=== PATIENT | female | born 1930 | race Caucasian/White ===

== ENCOUNTER 2016-12-27 13:40 | Observation (INO) ==
[2016-12-27 14:21] LABS: Basophils % 0.2 %; Eosinophils # 0.1 K/mcL (0.0-0.6); Eosinophils % 0.6 %; Hematocrit 44.1 % (35.3-44.9); Hemoglobin 14.6 g/dL (11.5-15.4); Immature Granulocytes % 0.6 % (0-4); Lymphocytes # 0.8 K/mcL (0.6-4.6); Lymphocytes % 7.6 %; Mean Corpuscular HGB Conc 33.1 g/dL (31.6-35.5); Mean Corpuscular Hemoglobin 28.8 pg (28.0-33.3); Monocytes # 0.3 K/mcL (0.0-1.3); Monocytes % 3.1 %; Platelet Count 239 K/mcL (140-400); Red Blood Count 5.07 M/mcL (3.82-4.97); Red Cell Distribution Width 13.2 % (11.5-14.5); Segmented Neutrophils % 87.9 %
[2016-12-27] MEDS ORDERED: 0.9 % Sodium Chloride 500 ML IV ONE (14:24)
[2016-12-27] MEDS ORDERED: Piperacillin/Tazobactam 3.375 GM in D5% in Water (Mini-Bag+) 100 ML IVPB ONE (14:25)
[2016-12-27] MEDS ORDERED: Vancomycin 1,000 MG in D5% in Water 250 ML IVPB ONE (14:25)
[2016-12-27 14:36] LABS: Alanine Aminotransferase 22 Units/L (0-55); Albumin 3.7 g/dL (3.5-5.0); Albumin/Globulin Ratio 1.1 (1.1-2.2); Alkaline Phosphatase 135 Units/L (38-126); Aspartate Amino Transferase 22 Units/L (5-34); BUN/Creatinine Ratio 21 (6-26); Bilirubin,Total 0.5 mg/dL (0.2-1.2); Blood Urea Nitrogen 16 mg/dL (7-20); Calcium 9.1 mg/dL (8.6-10.8); Carbon Dioxide 24 mEq/L (19-29); Chloride 102 mEq/L (98-109); Globulin 3.3 g/dL (2.4-3.5); Glucose 208 mg/dL (70-99); Osmolality,Calculated 289 (280-300); Potassium 3.8 mEq/L (3.5-4.5); Sodium 136 mEq/L (136-145); eGFR For African Americans > 60 (> 60); eGFR For Non-African Americans > 60 (> 60)
[2016-12-27 14:38] LABS: Bilirubin,Urine Negative (Negative); Blood,Urine Small (Negative); Clarity,Urine Turbid (Clear); Color,Urine Yellow (Yellow); Glucose,Urine (UA) 250 mg/dL (Normal); Ketones,Urine 15 mg/dL (Negative); Leukocyte Esterase,Urine Large (Negative); Nitrite,Urine Positive (Negative); PH,Urine 6.5 pH Units (5.0-8.0); Protein,Urine Trace mg/dL (Neg-Trace); Specific Gravity,Urine 1.013 (1.010-1.025); Urobilinogen,Urine Normal (Normal)
[2016-12-27 14:40] LABS: Bacteria,Urine Many per hpf (None-Few); Hyaline Casts,Urine None Seen per lpf (None-Few); Squamous Epithelial Cell,Urine Many per lpf (None-Few); WBC,Urine TNTC per hpf (0-3)
[2016-12-27 14:53] LABS: INR 1.1; Prothrombin Time 11.4 Seconds (9.4-12.1)
[2016-12-27 14:56] LABS: Activated Partial Thrombo Time 30.1 Seconds (26.0-36.0)
--- NOTE | 2016-12-27 15:08 | Emergency Department Note ---
Disposition Clinical Impression: Altered mental status Qualifiers: Altered mental status type: unspecified Qualified Code(s): R41.82 - Altered mental status, unspecified UTI (urinary tract infection) Qualifiers: Urinary tract infection type: site unspecified Hematuria presence: without hematuria Qualified Code(s): N39.0 - Urinary tract infection, site not specified Disposition: Admitted As Inpatient Condition: Good Referrals: NO,PCP [Primary Care Provider] - Forms: ED Satisfaction Letter Altered Mental Status HPI - General Chief Complaint: ED Altered Mental Status Stated Complaint: AMS Time Seen by Provider: 12/27/16 13:43 Source: EMS Limitations: altered mental status Nursing Notes Reviewed: Yes Vital Signs Reviewed: Yes - History of Present Illness HPI Narrative: [facility] was dispatched and found the patient was having PVCs with occasional runs of V. tach. Oxygen was placed and patient became more responsive and the PVCs reduced. Of note patient had a stroke 2 years ago and has not been doing well since then. MD complaint: altered mental status - Related Data Allergies Allergy/AdvReac Type Severity Reaction Status Date / Time morphine Allergy See Verified 12/27/16 13:42 Comments sulfasalazine AdvReac See Verified 12/27/16 13:42 Comments Limitations: ROS unobtainable due to patients medical condition Past Medical History - Past Medical History Source: unable to obtain Medical history: Reports: arthritis, CVA, dementia, hyperlipidemia, hypertension , myocardial infarction Psychiatric history: Reports: anxiety, depression - Social History Smoking Status: Unknown if ever smoked Alcohol use: Reports: unknown Drug use: Reports: unknown Physical Exam - General Limitations: altered mental status General appearance: lethargic, in distress - Head Head exam: atraumatic, normocephalic, normal inspection - Eye Eye exam: Present: normal appearance, PERRL, EOMI - ENT ENT exam: normal exam, normal oropharynx, mucous membranes moist - Neck Neck exam: Present: trachea midline. Absent: tenderness, lymphadenopathy - Chest Chest inspection: Present: normal inspection, symmetric chest wall rise - Respiratory Respiratory exam: Present: normal lung sounds bilaterally - Cardiovascular Cardiovascular exam: Present: regular rate, normal rhythm, normal heart sounds - Abdominal Exam Abdominal exam: Present: soft, Non-Tender. Absent: tenderness, distention, guarding, rebound, rigidity - Extremities Exam Extremities exam: Present: normal inspection, full ROM. Absent: tenderness, pedal edema - Back Exam Back exam: Absent: tenderness, CVA tenderness (R), CVA tenderness (L) - Neurological Exam Neurological exam: Present: other (Limited secondary to patient mental status) - Psychiatric Psychiatric exam: Present: other (Limited secondary to patient's mental status) - Skin Skin exam: Present: warm, dry, intact Course Vital Signs Temperature 99.4 F 12/27/16 13:43 Pulse Rate 84 12/27/16 13:43 Respiratory Rate 22 12/27/16 13:43 Blood Pressure 250/137 12/27/16 13:43 O2 Sat by Pulse Oximetry 95 12/27/16 13:43 Temperature 99.4 F 12/27/16 13:43 Pulse Rate 76 12/27/16 15:02 Respiratory Rate 28 12/27/16 15:02 Blood Pressure 109/84 12/27/16 15:02 O2 Sat by Pulse Oximetry 100 12/27/16 15:02 Oxygen Delivery Oxygen Delivery Bipap Altered Mental Status - Differential Diagnosis Likely: altered mental status, delirium, hypoglycemia, hyponatremia - Lab Data Lab results reviewed: Yes I reviewed the patient's lab results. Result diagrams: 12/27/16 14:14 12/27/16 14:14 Lab Results 12/27/16 12/27/16 12/27/16 Range/Units 14:14 14:14 14:14 WBC 10.2 (4.3-11.1) K/mcL RBC 5.07 H (3.82-4.97) M/mcL Hgb 14.6 (11.5-15.4) g/dL Hct 44.1 (35.3-44.9) % MCV 87.0 (83.0-100.0) fL MCH 28.8 (28.0-33.3) pg MCHC 33.1 (31.6-35.5) g/dL RDW 13.2 (11.5-14.5) % Plt Count 239 (140-400) K/mcL MPV 9.0 L (9.4-12.4) fL Immature Gran % 0.6 (0-4) % Seg Neutrophils % 87.9 % Lymphocytes % 7.6 % Monocytes % 3.1 % Eosinophils % 0.6 % Basophils % 0.2 % Neutrophils # 9.0 H (1.6-8.9) K/mcL Lymphocytes # 0.8 (0.6-4.6) K/mcL Monocytes # 0.3 (0.0-1.3) K/mcL Eosinophils # 0.1 (0.0-0.6) K/mcL Basophils # 0.0 (0.0-0.2) K/mcL PT 11.4 (9.4-12.1) Seconds INR 1.1 APTT 30.1 (26.0-36.0) Seconds Sodium 136 (136-145) mEq/L Potassium 3.8 (3.5-4.5) mEq/L Chloride 102 (98-109) mEq/L Carbon Dioxide 24 (19-29) mEq/L BUN 16 (7-20) mg/dL Creatinine 0.77 (0.57-1.11) mg/dL Est GFR ( Amer) > 60 (> 60) Est GFR (Non-Af Amer) > 60 (> 60) BUN/Creatinine Ratio 21 (6-26) Glucose 208 H (70-99) mg/dL Calculated Osmolality 289 (280-300) Lactic Acid (0.5-2.2) mmol/L Calcium 9.1 (8.6-10.8) mg/dL Total Bilirubin 0.5 (0.2-1.2) mg/dL AST 22 (5-34) Units/L ALT 22 (0-55) Units/L Alkaline Phosphatase 135 H (38-126) Units/L Troponin I (0-0.03) ng/mL Serum Total Protein 7.0 (6.0-8.3) g/dL Albumin 3.7 (3.5-5.0) g/dL Globulin 3.3 (2.4-3.5) g/dL Albumin/Globulin Ratio 1.1 (1.1-2.2) Urine Color (Yellow) Urine Clarity (Clear) Urine pH (5.0-8.0) pH Units Ur Specific [place] (1.010-1.025) Urine Protein (Neg-Trace) mg/dL Urine Glucose (UA) (Normal) mg/dL Urine Ketones (Negative) mg/dL Urine Blood (Negative) Urine Nitrite (Negative) Urine Bilirubin (Negative) Urine Urobilinogen (Normal) mg/dL Ur Leukocyte Esterase (Negative) Urine Microscopic RBC (0-3) per hpf Urine Microscopic WBC (0-3) per hpf Ur Squamous Epith Cells (None-Few) per lpf Urine Bacteria (None-Few) per hpf Hyaline Casts (None-Few) per lpf Ur Culture Indicated? (NO) 12/27/16 12/27/16 12/27/16 Range/Units 14:14 14:14 14:30 WBC (4.3-11.1) K/mcL RBC (3.82-4.97) M/mcL Hgb (11.5-15.4) g/dL Hct (35.3-44.9) % MCV (83.0-100.0) fL MCH (28.0-33.3) pg MCHC (31.6-35.5) g/dL RDW (11.5-14.5) % Plt Count (140-400) K/mcL MPV (9.4-12.4) fL Immature Gran % (0-4) % Seg Neutrophils % % Lymphocytes % % Monocytes % % Eosinophils % % Basophils % % Neutrophils # (1.6-8.9) K/mcL Lymphocytes # (0.6-4.6) K/mcL Monocytes # (0.0-1.3) K/mcL Eosinophils # (0.0-0.6) K/mcL Basophils # (0.0-0.2) K/mcL PT (9.4-12.1) Seconds INR APTT (26.0-36.0) Seconds Sodium (136-145) mEq/L Potassium (3.5-4.5) mEq/L Chloride (98-109) mEq/L Carbon Dioxide (19-29) mEq/L BUN (7-20) mg/dL Creatinine (0.57-1.11) mg/dL Est GFR ( Amer) (> 60) Est GFR (Non-Af Amer) (> 60) BUN/Creatinine Ratio (6-26) Glucose (70-99) mg/dL Calculated Osmolality (280-300) Lactic Acid 1.6 (0.5-2.2) mmol/L Calcium (8.6-10.8) mg/dL Total Bilirubin (0.2-1.2) mg/dL AST (5-34) Units/L ALT (0-55) Units/L Alkaline Phosphatase (38-126) Units/L Troponin I 0.01 (0-0.03) ng/mL Serum Total Protein (6.0-8.3) g/dL Albumin (3.5-5.0) g/dL Globulin (2.4-3.5) g/dL Albumin/Globulin Ratio (1.1-2.2) Urine Color Yellow (Yellow) Urine Clarity Turbid A (Clear) Urine pH 6.5 (5.0-8.0) pH Units Ur Specific [place] 1.013 (1.010-1.025) Urine Protein Trace (Neg-Trace) mg/dL Urine Glucose (UA) 250 H (Normal) mg/dL Urine Ketones 15 H (Negative) mg/dL Urine Blood Small H (Negative) Urine Nitrite Positive A (Negative) Urine Bilirubin Negative (Negative) Urine Urobilinogen Normal (Normal) mg/dL Ur Leukocyte Esterase Large H (Negative) Urine Microscopic RBC 3-5 H (0-3) per hpf Urine Microscopic WBC TNTC H (0-3) per hpf Ur Squamous Epith Cells Many H (None-Few) per lpf Urine Bacteria Many H (None-Few) per hpf Hyaline Casts None Seen (None-Few) per lpf Ur Culture Indicated? YES A (NO) - Radiology Data Radiology results reviewed: Yes I reviewed the patient's radiology results. Chest X-Ray 12/27/16 13:45 IMPRESSION: No acute cardiopulmonary process seen. D/ / Eamon Harris MD / Eamon Harris MD Interpreting Provider: Eamon Harris MD - EKG Data EKG attestation: Yes I reviewed and interpreted this EKG. EKG results narrative: Sinus rhythm with occasional PVCs TPA Checklist - LKW: 3-4.5 hrs Add. Contraindications Patient/family understanding: The patient/family members have been counseled and understood the risk, benefit , and alternatives of treatment. Critical Care Time Total Critical Care Time: 45 Attestation: Critical care performed: Time is exclusive of separately billable procedures. Time includes: direct patient care, patient reassessment, coordination of patient care, interpretation of data (laboratory data, radiology data, and respiratory data), review of patient's medical records, medical consultation and documentation of patient care. Procedures included in critical care time: Procedures excluded from critical care time:
[2016-12-27 15:31] LABS: ABG Base Excess -4.9 mEq/L (-2.0 to 3.0); ABG HCO3 20.6 mEQ/L (21-27); ABG Oxygen Saturation 99 % (95-98); ABG PCO2 39 mmHg (35-45); ABG PH 7.33 pH Units (7.32-7.45); ABG PO2 158 mmHg (85-104); ABG TCO2 21.8 mEq/L (20-26); Blood Gas FiO2 50 %
[2016-12-27 15:43] LABS: Magnesium 1.8 mg/dL (1.6-2.6)
[2016-12-27] MEDS ORDERED: Nitroglycerin 0.4 MG TAB.SUBL SL PRN (17:36)
[2016-12-27] MEDS ORDERED: Artificial Tears SOLN 15 ML BOTTLE BOTH EYES PRN (17:36)
[2016-12-27] MEDS ORDERED: HALOPERIDOL 2 MG PO PRN (17:36)
[2016-12-27] MEDS ORDERED: Naloxone 0.4 MG/ML INJ IVP PRN (17:39)
--- NOTE | 2016-12-27 17:51 | Internal Med History&Physical ---
Date of Encounter: 12/27/16 Time of Encounter: 17:48 Assessment and Plan (1) Acute cystitis without hematuria Current visit: Yes Status: Acute We will treat the patient with IV ceftriaxone. Follow up urine culture and sensitivities and adjust antibiotic therapy accordingly. (2) Acute metabolic encephalopathy Current visit: Yes Status: Acute Likely secondary to infection on top of her baseline dementia. We will institute fall precautions and aspiration precautions. Frequent reorientation. Soft wrist restraints if needed for risk of self-harm. She is at very high risk for morbidity and mortality and complications due to severe alteration of consciousness. (3) Advanced dementia Current visit: Yes Status: Acute Continue Namenda and Aricept. We will use haloperidol as needed for extreme agitation. (4) DVT prophylaxis Current visit: Yes Status: Acute Not needed the patient is DNR comfort care only. (5) End of life care Current visit: Yes Status: Acute Patient had an episode of bradycardia down to 20 bpm which was nonsustained, likely indicative of approaching end of life. She has advanced dementia, nonverbal and bedbound. The goal of care would be cured towards comfort and treating the infection however no aggressive or heroic measurement measures will be undertaken. This was discussed in detail with the patient's brother and his who expressed understanding and agreement with the plan. (6) Goals of care, counseling/discussion Current visit: Yes Status: Acute I have discussed the goals of care and the patient's family agrees to DNR comfort care. They would like to continue treatment with antibiotics. I will consult palliative care. Internal Medicine - H&P: HPI Chief complaint: Altered mental status Admitted From: Emergency Dept Plans for Post Hospital Care: Hospice - Home History of present illness: Ms. 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 The patient is currently nonverbal and cannot provide any history. The history is obtained from the patient's brother at the bedside. He says that at baseline she sometimes is minimally conversant waxes and wanes however for the last 2 days she has been less oriented. She has not been complaining of pain. He says that for the last 2 years she seemed to be more depressed and unhappy. EMS was called to the intermediate and she was found unresponsive. Her EKG showed multiple PVCs. She was brought to the hospital and workup was pertinent for positive UA. She was given broad-spectrum IV antibiotics and referred for admission. Review of systems unobtainable due to nonverbal state secondary to dementia. Family history reviewed and found to be noncontributory due to patient's advanced age. Past Med Surg Social Fam HX - Past Medical History Medical history: arthritis, CVA, dementia, hyperlipidemia, hypertension, myocardial infarction Psychiatric history: anxiety, depression - Social History Smoking Status: Unknown if ever smoked Alcohol use: unknown Drug use: unknown Internal Medicine - H&P: Meds Aspirin [Lo-Dose Aspirin EC] 81 mg PO DAILY 12/27/16 [History] Atorvastatin Calcium [Lipitor] 20 mg PO DAILY 12/27/16 [History] Buspirone HCl [Buspar] 10 mg PO BID 12/27/16 [History] Carvedilol [Coreg] 6.25 mg PO BID 12/27/16 [History] Dextromethorphan HBr/Quinidine [Nuedexta 20-10 mg Capsule] 1 cap PO BID [History] Donepezil HCl [Aricept] 10 mg PO DAILY 12/27/16 [History] Ergocalciferol (VITAMIN D2) [Vitamin D] 400 unit PO DAILY 12/27/16 [History] GuaiFENesin/Dextromethorphan [Robitussin Cough-Chest Dm Liq] 5 ml PO Q12H PRN [History] HYDROcodone/Acet 5/325 mg [Dixie 5-325 mg] 1 tab PO Q6H PRN 12/27/16 [History] Haloperidol 2 mg PO AD PRN 12/27/16 [History] Lisinopril [Zestril] 10 mg PO DAILY 12/27/16 [History] Loperamide [Imodium] 2 mg PO Q4HR PRN 12/27/16 [History] Magnesium Hydroxide [Milk of Magnesia] 60 ml PO DAILY PRN 12/27/16 [History] Memantine HCl [Namenda Xr] 28 mg PO DAILY 12/27/16 [History] Nitroglycerin [Nitrostat] 0.4 mg SL Q5M PRN 12/27/16 [History] Polyvinyl Alcohol [Artificial Tears] 1 drop BOTH EYES Q2H PRN 12/27/16 [History] Sertraline [Zoloft] 50 mg PO DAILY 12/27/16 [History] Vitamin E Acid Succinate [Vitamin E] 400 units PO DAILY 12/27/16 [History] Allergies morphine Allergy (Verified 12/27/16 15:40) See Comments UNKNOWN REACTION- LISTED ON ECF MAR SHEET sulfasalazine Allergy (Verified 12/27/16 15:40) See Comments UNKNOWN REACTION- LISTED ON ECF MAR SHEET All Systems PM: A 10-system review of systems was performed and is negative for pertinent findings except as documented above in the HPI. - Constitutional Vitals: Temp Pulse Resp BP Pulse Ox 97.0 F L 70 16 102/89 97 12/27/16 16:31 12/27/16 16:31 12/27/16 16:31 12/27/16 16:31 12/27/16 16:31 - Eye Eye exam: Present: PERRL, conjuntiva pink, sclera anicteric Pupils: Present: PERRL - Respiratory Respiratory exam: Present: CTAB. Absent: accessory muscle use, rales, rhonchi, wheezes - Cardiovascular Cardiovascular exam: Present: RRR, +S1, +S2. Absent: diastolic murmur, gallop, rubs, systolic murmur - GI/Abdominal GI/Abdominal exam: Present: normal bowel sounds, soft, no peritoneal signs. Absent: distended, tenderness - Neurological Exam Neurological exam: Present: speech deficit. Absent: pronater drift, facial droop Additional comments: Awake, tracks to with her eyes, nonverbal, does not follow commands. Answers yes and no questions inappropriately. - Skin Skin exam: Present: dry, intact Internal Med - H&P Results - Labs CBC & Chem 7: 12/27/16 14:14 12/27/16 14:14 - EKG Data EKG comments: 12/27/16 17:52 EKG reviewed by myself shows ventricular trigeminy with a rate of 67 bpm normal axis, right bundle branch block. - VTE Reasons for not Prescribing Prophylaxis: Medical contraindication
[2016-12-28] MEDS: Haloperidol Lactate 5 MG/ML VIAL IVP PRN ×2 (00:50→22:20)
[2016-12-28 06:19] LABS: Basophils % 0.2 %; Hemoglobin 14.6 g/dL (11.5-15.4); Immature Granulocytes % 0.3 % (0-4); Lymphocytes # 0.7 K/mcL (0.6-4.6); Lymphocytes % 5.7 %; Mean Corpuscular Volume 85.3 fL (83.0-100.0); Mean Platelet Volume 9.3 fL (9.4-12.4); Monocytes # 0.5 K/mcL (0.0-1.3); Monocytes % 4.5 %; Neutrophils # 10.7 K/mcL (1.6-8.9); Platelet Count 210 K/mcL (140-400); Red Blood Count 5.04 M/mcL (3.82-4.97); Red Cell Distribution Width 13.3 % (11.5-14.5); Segmented Neutrophils % 89.3 %
[2016-12-28 06:39] LABS: BUN/Creatinine Ratio 19 (6-26); Blood Urea Nitrogen 12 mg/dL (7-20); Calcium 9.1 mg/dL (8.6-10.8); Carbon Dioxide 19 mEq/L (19-29); Chloride 104 mEq/L (98-109); Glucose 94 mg/dL (70-99); Osmolality,Calculated 284 (280-300); Potassium 3.6 mEq/L (3.5-4.5); Sodium 137 mEq/L (136-145); eGFR For African Americans > 60 (> 60); eGFR For Non-African Americans > 60 (> 60)
--- NOTE | 2016-12-28 08:47 | Internal Med Progress Note ---
<Shaq Mendez - Last Filed: 12/28/16 08:55> Date of Encounter: 12/28/16 Time of Encounter: 08:45 - Assessment and plan (1) Acute cystitis without hematuria Current Visit: Yes Status: Acute Assessment and plan: culture results show gram negative rods, currently on zosyn day 2, await final culture and sensitivities and narrow abx treatment accordingly. Will treat for total of 5 days. (2) Acute metabolic encephalopathy Current Visit: Yes Status: Acute Assessment and plan: On chronic dementia. Likely related to underlying infection as discussed above. Patient did have some agitation overnight that required haldol. Will continue to monitor for mental status changes (3) Advanced dementia Current Visit: Yes Status: Acute Assessment and plan: Will discuss baseline mental status with family. Once patient returns to baseline we will transfer back to [facility]. Continue aricept and namenda. Haldol prn for agitation. (4) Goals of care, counseling/discussion Current Visit: Yes Status: Acute Assessment and plan: Patient is DNR-CC. Instructed nursing to d/c tele. Comfort measures only which include treating infection. Denies pain at this time - Subjective Interval history: Patient seen and examined at bedside. Patient is somewhat somenelent but would open her eyes and respond appropriately. Patient has no complaints at this time. She denies any pain - Constitutional Vitals: Temp Pulse Resp BP Pulse Ox 98.3 F 95 16 129/87 95 12/28/16 07:29 12/28/16 07:29 12/28/16 07:29 12/28/16 07:29 12/28/16 07:35 General appearance: Present: no acute distress - Respiratory Respiratory exam: Present: CTAB. Absent: rales, rhonchi, wheezes - Cardiovascular Cardiovascular exam: Present: RRR. Absent: gallop, rubs, systolic murmur - GI/Abdominal GI/Abdominal exam: Present: normal bowel sounds, soft. Absent: distended, tenderness Additional comments: [place] present Internal Medicine: Result - Labs CBC & Chem 7: 12/28/16 05:44 12/28/16 05:44 Labs: Short CBC 12/28/16 Range/Units 05:44 WBC 12.0 H (4.3-11.1) K/mcL Hgb 14.6 (11.5-15.4) g/dL Hct 43.0 (35.3-44.9) % Plt Count 210 (140-400) K/mcL Neutrophils # 10.7 H (1.6-8.9) K/mcL BMP 12/28/16 05:44 Sodium 137 Potassium 3.6 Chloride 104 Carbon Dioxide 19 BUN 12 Creatinine 0.64 Glucose 94 Calcium 9.1 - ABG Interpretation ABG results: ABG ABG pH 7.33 pH Units (7.32-7.45) 12/27/16 15:20 ABG pCO2 39 mmHg (35-45) 12/27/16 15:20 ABG pO2 158 mmHg (85-104) H 12/27/16 15:20 ABG O2 Saturation 99 % (95-98) H 12/27/16 15:20 PT/INR, D-dimer PT 11.4 Seconds (9.4-12.1) 12/27/16 14:14 - VTE Reasons for not Prescribing Prophylaxis: Medical contraindication Consult Discharge Plan - Plan Referrals: NO,PCP [Primary Care Provider] - <Rony King P - Last Filed: 12/28/16 17:46> Date of Encounter: 12/28/16 - Constitutional Vitals: Temp Pulse Resp BP Pulse Ox 98.1 F 79 15 126/88 100 12/28/16 15:57 12/28/16 15:57 12/28/16 15:57 12/28/16 15:57 12/28/16 15:57 Internal Medicine: Result - Labs CBC & Chem 7: 12/28/16 05:44 12/28/16 05:44 Labs: Short CBC 12/28/16 Range/Units 05:44 WBC 12.0 H (4.3-11.1) K/mcL Hgb 14.6 (11.5-15.4) g/dL Hct 43.0 (35.3-44.9) % Plt Count 210 (140-400) K/mcL Neutrophils # 10.7 H (1.6-8.9) K/mcL BMP 12/28/16 05:44 Sodium 137 Potassium 3.6 Chloride 104 Carbon Dioxide 19 BUN 12 Creatinine 0.64 Glucose 94 Calcium 9.1 - ABG Interpretation ABG results: ABG ABG pH 7.33 pH Units (7.32-7.45) 12/27/16 15:20 ABG pCO2 39 mmHg (35-45) 12/27/16 15:20 ABG pO2 158 mmHg (85-104) H 12/27/16 15:20 ABG O2 Saturation 99 % (95-98) H 12/27/16 15:20 PT/INR, D-dimer PT 11.4 Seconds (9.4-12.1) 12/27/16 14:14 - Attending Attestation I examined this patient and my medical decision-making was reviewed with the DOUGH MAKER/PA/Advanced Practice Nurse/Resident Physician. I agree with the documented findings, disposition and treatment plan as described except to the extent set forth below.
[2016-12-28] MEDS: *HR* HYDROcodone/Acet 5/325 mg TABLET PO PRN ×3 (08:49→22:21)
[2016-12-28] MEDS: Aspirin Enteric Coated 81 MG Tablet PO SCH (09:10)
[2016-12-28] MEDS: (Memantine Hcl [Namenda Xr] 28 MG) PO SCH (09:11)
--- NOTE | 2016-12-28 15:26 | Palliative - Consult Note ---
Date of Encounter: 12/28/16 Time of Encounter: 09:20 - Assessment and Plan (1) Acute cystitis without hematuria Current Visit: Yes Status: Acute Assessment and plan: On Zosyn for this, urine is showing gram-negative rods. Plan is for 5 days' worth of treatment per the hospitalist team. Patient will probably be discharged back to prison tomorrow. (2) Acute metabolic encephalopathy Current Visit: Yes Status: Acute Assessment and plan: Chronic dementia. The worsening encephalopathy is most likely secondary to the bladder infection. Patient overnight did require some Haldol. Continue to watch. (3) Advanced dementia Current Visit: Yes Status: Acute Assessment and plan: 2 new current medications Haldol when necessary for agitation plan is for the patient to return to [place]. (4) Goals of care, counseling/discussion Current Visit: Yes Status: Acute Assessment and plan: CODE STATUS DNR comfort care, patient and family wish to be treated for this infection. Care to return to prison after treatment for this infection. As the family wishes to have the patient treated for this infection will hold on any hospice discussion at this time until after the patient is over this infection and establish a baseline. Her dementia alone is insufficient to justify hospice at this time and her infection is being actively treated therefore we can pursue hospice in the future if it is desired to the prison. Palliative-CN HPI - Data of Consult Patient: new to practice Requesting Physician: Samantha Galeas Primary Care Provider: PCP NO - Consult Narrative Palliative Care/Comfort Measures: Palliative care Reason for consult: Goals of care History of present illness: Ms. Finney is a 86 year old female With a history of dementia who presents with a further change in her mental status which was found to be secondary to an acute cystitis. Family planning, was to return to prison. Patient's family wishes to have comfort measures only but did not want to have the infection treated. During her initial evaluation the patient did have periods of extreme bradycardia. He did not wish to have any of this treated aggressively other than the infection. Care was counseled regarding goals of care. At this time the patient does not have any complaints of. CC: Samantha Galeas Past Med Surg Social Fam HX - Past Medical History Medical history: arthritis, CVA, dementia, hyperlipidemia, hypertension, myocardial infarction Psychiatric history: anxiety, depression - Social History Smoking Status: Unknown if ever smoked Alcohol use: unknown Drug use: unknown Medications and Allergies Aspirin [Lo-Dose Aspirin EC] 81 mg PO DAILY 12/27/16 [History] Atorvastatin Calcium [Lipitor] 20 mg PO DAILY 12/27/16 [History] Buspirone HCl [Buspar] 10 mg PO BID 12/27/16 [History] Carvedilol [Coreg] 6.25 mg PO BID 12/27/16 [History] Dextromethorphan HBr/Quinidine [Nuedexta 20-10 mg Capsule] 1 cap PO BID [History] Donepezil HCl [Aricept] 10 mg PO DAILY 12/27/16 [History] Ergocalciferol (VITAMIN D2) [Vitamin D] 400 unit PO DAILY 12/27/16 [History] GuaiFENesin/Dextromethorphan [Robitussin Cough-Chest Dm Liq] 5 ml PO Q12H PRN [History] HYDROcodone/Acet 5/325 mg [[place] 5-325 mg] 1 tab PO Q6H PRN 12/27/16 [History] Haloperidol 2 mg PO AD PRN 12/27/16 [History] Lisinopril [Zestril] 10 mg PO DAILY 12/27/16 [History] Loperamide [Imodium] 2 mg PO Q4HR PRN 12/27/16 [History] Magnesium Hydroxide [Milk of Magnesia] 60 ml PO DAILY PRN 12/27/16 [History] Memantine HCl [Namenda Xr] 28 mg PO DAILY 12/27/16 [History] Nitroglycerin [Nitrostat] 0.4 mg SL Q5M PRN 12/27/16 [History] Polyvinyl Alcohol [Artificial Tears] 1 drop BOTH EYES Q2H PRN 12/27/16 [History] Sertraline [Zoloft] 50 mg PO DAILY 12/27/16 [History] Vitamin E Acid Succinate [Vitamin E] 400 units PO DAILY 12/27/16 [History] Allergies morphine Allergy (Verified 12/27/16 15:40) See Comments UNKNOWN REACTION- LISTED ON ECF MAR SHEET sulfasalazine Allergy (Verified 12/27/16 15:40) See Comments UNKNOWN REACTION- LISTED ON ECF MAR SHEET ROS unobtainable: due to mental status Palliative Care-Exam - Constitutional Vitals: Temp Pulse Resp BP Pulse Ox 98.3 F 95 16 129/87 95 12/28/16 07:29 12/28/16 07:29 12/28/16 07:29 12/28/16 07:29 12/28/16 07:35 General appearance: Present: no acute distress - Head Head Exam: Present: atraumatic, normal inspection - Eye Eye exam: Present: EOMI, normal appearance - ENT ENT exam: Present: mucous membranes moist, normal oropharynx - Neck Neck exam: Present: normal inspection - Respiratory Respiratory exam: Present: CTAB - Cardiovascular Cardiovascular exam: Present: irregular rhythm - GI/Abdominal Exam GI/Abdominal exam: Present: normal bowel sounds. Absent: soft, tenderness - Catheter Type: Urethral ([place]) - Extremities Exam Extremities exam: Present: normal inspection. Absent: pedal edema, tenderness - Neurological Exam Neurological exam: Present: altered. Absent: oriented X3 (Awakens easily) - Psychiatric Psychiatric exam: Absent: agitated, anxious - Skin Skin exam: Present: dry, warm Internal Medicine - CN: Reslt - Labs CBC & Chem 7: 12/28/16 05:44 12/28/16 05:44 Labs: Short CBC 12/28/16 Range/Units 05:44 WBC 12.0 H (4.3-11.1) K/mcL Hgb 14.6 (11.5-15.4) g/dL Hct 43.0 (35.3-44.9) % Plt Count 210 (140-400) K/mcL Neutrophils # 10.7 H (1.6-8.9) K/mcL BMP 12/28/16 05:44 Sodium 137 Potassium 3.6 Chloride 104 Carbon Dioxide 19 BUN 12 Creatinine 0.64 Glucose 94 Calcium 9.1 - ABG Interpretation ABG results: ABG ABG pH 7.33 pH Units (7.32-7.45) 12/27/16 15:20 ABG pCO2 39 mmHg (35-45) 12/27/16 15:20 ABG pO2 158 mmHg (85-104) H 12/27/16 15:20 ABG O2 Saturation 99 % (95-98) H 12/27/16 15:20 PT/INR, D-dimer PT 11.4 Seconds (9.4-12.1) 12/27/16 14:14 Consult Discharge Plan - Plan Referrals: NO,PCP [Primary Care Provider] - Palliative Quality Palliative Quality: Screen for Code Status: Yes, Screen for Goals of Care: Yes, Screen for Pain: Yes, If Pain Regimen Started, Initiate Bowel Regimen: Yes ( Bowel regimen was initiated, although not actively treating pain), Screen for Nausea/Vomitting: Yes Code Status: DNR comfort care.
--- NOTE | 2016-12-28 19:37 | Electrocardiograph Report ---
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
[2016-12-29 08:44] VITALS: BP 147/92
--- NOTE | 2016-12-29 08:58 | Discharge Summary ---
<Shaq Mendez - Last Filed: 12/29/16 15:39> Date of Encounter: 12/29/16 Time of Encounter: 08:55 - Discharge Diagnosis (1) Acute cystitis without hematuria Priority: Primary Status: Acute (2) Acute metabolic encephalopathy Priority: Primary Status: Acute (3) Advanced dementia Priority: Secondary Status: Chronic (4) Goals of care, counseling/discussion Priority: Secondary Status: Chronic - Discharge Medications Prescriptions: Amoxicillin 250 mg PO Q8H #9 capsule Home Medications: Aspirin [Lo-Dose Aspirin EC] 81 mg PO DAILY 12/27/16 [History] Atorvastatin Calcium [Lipitor] 20 mg PO DAILY 12/27/16 [History] Buspirone HCl [Buspar] 10 mg PO BID 12/27/16 [History] Carvedilol [Coreg] 6.25 mg PO BID 12/27/16 [History] Dextromethorphan HBr/Quinidine [Nuedexta 20-10 mg Capsule] 1 cap PO BID [History] Donepezil HCl [Aricept] 10 mg PO DAILY 12/27/16 [History] Ergocalciferol (VITAMIN D2) [Vitamin D] 400 unit PO DAILY 12/27/16 [History] GuaiFENesin/Dextromethorphan [Robitussin Cough-Chest Dm Liq] 5 ml PO Q12H PRN [History] HYDROcodone/Acet 5/325 mg [[place] 5-325 mg] 1 tab PO Q6H PRN 12/27/16 [History] Haloperidol 2 mg PO AD PRN 12/27/16 [History] Lisinopril [Zestril] 10 mg PO DAILY 12/27/16 [History] Loperamide [Imodium] 2 mg PO Q4HR PRN 12/27/16 [History] Magnesium Hydroxide [Milk of Magnesia] 60 ml PO DAILY PRN 12/27/16 [History] Memantine HCl [Namenda Xr] 28 mg PO DAILY 12/27/16 [History] Nitroglycerin [Nitrostat] 0.4 mg SL Q5M PRN 12/27/16 [History] Polyvinyl Alcohol [Artificial Tears] 1 drop BOTH EYES Q2H PRN 12/27/16 [History] Sertraline [Zoloft] 50 mg PO DAILY 12/27/16 [History] Vitamin E Acid Succinate [Vitamin E] 400 units PO DAILY 12/27/16 [History] Amoxicillin 250 mg PO Q8H #9 capsule 12/29/16 [Rx] Allergies/Adverse Reactions: Allergies morphine Allergy (Verified 12/27/16 15:40) See Comments UNKNOWN REACTION- LISTED ON ECF MAR SHEET sulfasalazine Allergy (Verified 12/27/16 15:40) See Comments UNKNOWN REACTION- LISTED ON ECF MAR SHEET Date of admission: 12/27/16 18:08 Primary care physician: PCP YARELI Discharging clinician: Shaq Mendez Anticipated date of discharge: 12/29/16 - Patient Status Disposition: Transfer SNF Condition: Good Functional capacity at discharge: bed bound Overall status at discharge: patient is progressing back to baseline - Discharge Instructions Instructions: Urinary Tract Infection in Women (DC) Follow Up With: NO,PCP [Primary Care Provider] - Additional Instructions: Please complete 3 more days of antibiotics. Please resume your home meds - Diet and Activity Activity: increase activity as tolerated Diet: advance to your usual diet Interval History: Patient seen and examined at bedside. Patient is awake and alert but not oriented. She denies pain at this time. Appears to be back at her baseline mental status. Hospital course: Ms. Finney is a 86 year old female with history of advanced dementia presented from the [facility] with acute change in her mental status. Patient was found to have infection. She was started on Zosyn. Patient did have some agitation during her stay however this is normal for her per family. Patient's mental status returned to her baseline. Urinary culture showed Escherichia coli sensitive to penicillin so patient was discharged on amoxicillin. Patient was discharged to [facility] in stable condition. - Time Spent with Patient Total time spent providing and/or coordinating discharge services: - Constitutional Vitals: Temp Pulse Resp BP Pulse Ox 98 F 102 18 147/92 96 12/29/16 08:30 12/29/16 08:30 12/29/16 08:30 12/29/16 08:30 12/29/16 08:30 General appearance: Present: A&O X 0, no acute distress - Respiratory Respiratory exam: Present: CTAB. Absent: rales, rhonchi - Cardiovascular Cardiovascular exam: Present: RRR, +S1, +S2. Absent: gallop, rubs, systolic murmur - GI/Abdominal GI/Abdominal exam: Present: normal bowel sounds, soft. Absent: distended, tenderness - Neurological Exam Neurological exam: Present: alert, altered, no focal deficits. Absent: oriented X3 - VTE Reasons for not Prescribing Prophylaxis: Medical contraindication <Daryn Davis - Last Filed: 12/29/16 15:51> Date of Encounter: 12/29/16 - Discharge Diagnosis (1) Acute cystitis without hematuria Status: Acute (2) Acute metabolic encephalopathy Status: Acute (3) Advanced dementia Status: Chronic Date of admission: 12/27/16 18:08 Primary care physician: PCP NO Hospital course: Ms. Finney is a 86 year old female - Time Spent with Patient Total time spent providing and/or coordinating discharge services: - Constitutional Vitals: Temp Pulse Resp BP Pulse Ox 98 F 102 18 147/92 96 12/29/16 08:30 12/29/16 08:30 12/29/16 08:30 12/29/16 08:30 12/29/16 08:30 - Attending Attestation I examined this patient and my medical decision-making was reviewed with the Resident Physician on 12/29/16. I agree with the documented findings, disposition and treatment plan as described except to the extent set forth below. Ms. Finney appears to be at baseline today. No acute issues noted. Exam Alert. Comfortable Heart reg Lungs with scant wheeze RUL area Abd soft Plan D/C to ECF today.
[2016-12-29] MEDS: Aspirin Enteric Coated 81 MG Tablet PO SCH (09:09)
[2016-12-29] MEDS: (Memantine Hcl [Namenda Xr] 28 MG) PO SCH (09:11)
--- NOTE | 2016-12-29 13:17 | Palliative Progress Note ---
Date of Encounter: 12/29/16 Time of Encounter: 09:40 - Assessment and plan (1) Acute cystitis without hematuria Status: Acute Assessment and plan: Patient to be discharged today on oral antibiotics (2) Acute metabolic encephalopathy Status: Acute Assessment and plan: This was in all likelihood secondary to the acute cystitis compounded by the patient's underlying dementia. (3) Advanced dementia Status: Chronic Assessment and plan: Continue current medications patient being discharged today. (4) Goals of care, counseling/discussion Status: Chronic Assessment and plan: Patient is DO NOT RESUSCITATE comfort care. No changes in this. Patient be returning to shelter today. The family wished to have treatment for the acute cystitis hospice discussion was held pending completion of the antibiotics and then can be rediscussed at a future date at the shelter. - Time Spent With Patient Total time spent is greater than 50% in coordination of care (as documented) at patient's floor/unit and/or counseling patient: - Subjective Interval history: No complaints of this morning, no events noted overnight. Per hospitalist team plan is for discharge today back to shelter - Constitutional Vitals: Abnormal lab results WBC 12.0 K/mcL (4.3-11.1) H 12/28/16 05:44 RBC 5.04 M/mcL (3.82-4.97) H 12/28/16 05:44 MPV 9.3 fL (9.4-12.4) L 12/28/16 05:44 Neutrophils # 10.7 K/mcL (1.6-8.9) H 12/28/16 05:44 ABG pO2 158 mmHg (85-104) H 12/27/16 15:20 ABG HCO3 20.6 mEQ/L (21-27) L 12/27/16 15:20 ABG O2 Saturation 99 % (95-98) H 12/27/16 15:20 ABG Base Excess -4.9 mEq/L (-2.0 to 3.0) L 12/27/16 15:20 Alkaline Phosphatase 135 Units/L (38-126) H 12/27/16 14:14 Urine Clarity Turbid (Clear) A 12/27/16 14:30 Urine Glucose (UA) 250 mg/dL (Normal) H 12/27/16 14:30 Urine Ketones 15 mg/dL (Negative) H 12/27/16 14:30 Urine Blood Small (Negative) H 12/27/16 14:30 Urine Nitrite Positive (Negative) A 12/27/16 14:30 Ur Leukocyte Esterase Large (Negative) H 12/27/16 14:30 Urine Microscopic RBC 3-5 per hpf (0-3) H 12/27/16 14:30 Urine Microscopic WBC TNTC per hpf (0-3) H 12/27/16 14:30 Ur Squamous Epith Cells Many per lpf (None-Few) H 12/27/16 14:30 Urine Bacteria Many per hpf (None-Few) H 12/27/16 14:30 Ur Culture Indicated? YES (NO) A 12/27/16 14:30 General appearance: Present: no acute distress - Head Head exam: Present: atraumatic, normal inspection - Eye Eye exam: Present: normal appearance - ENT ENT exam: Present: mucous membranes moist - Respiratory Respiratory exam: Present: CTAB - Cardiovascular Cardiovascular exam: Present: RRR - GI/Abdominal GI/Abdominal exam: Present: normal bowel sounds, soft. Absent: tenderness - Extremities Exam Extremities exam: Present: normal inspection. Absent: pedal edema, tenderness - Neurological Exam Neurological exam: Present: alert, altered. Absent: oriented X3 - Psychiatric Psychiatric exam: Absent: agitated, anxious - Skin Skin exam: Present: dry, warm Palliative Quality Palliative Quality: Screen for Code Status: Yes, Screen for Goals of Care: Yes, Screen for Pain: Yes, If Pain Regimen Started, Initiate Bowel Regimen: Yes ( Bowel regimen was initiated, although not actively treating pain), Screen for Nausea/Vomitting: Yes - Labs CBC & Chem 7: 12/28/16 05:44 12/28/16 05:44 - ABG Interpretation ABG results: ABG ABG pH 7.33 pH Units (7.32-7.45) 12/27/16 15:20 ABG pCO2 39 mmHg (35-45) 12/27/16 15:20 ABG pO2 158 mmHg (85-104) H 12/27/16 15:20 ABG O2 Saturation 99 % (95-98) H 12/27/16 15:20 PT/INR, D-dimer PT 11.4 Seconds (9.4-12.1) 12/27/16 14:14 Consult Discharge Plan - Plan Instructions: Urinary Tract Infection in Women (DC) Additional Instructions: Please complete 3 more days of antibiotics. Please resume your home meds Referrals: NO,PCP [Primary Care Provider] - Prescriptions: Amoxicillin 250 mg PO Q8H #9 capsule
--- NOTE | 2016-12-29 15:55 | Physician Discharge Referral ---
ExtendedCare Referral Info Provider in Charge after Transfer: PCP Institutional Level of Care: Intermediate - MR - Diagnosis (1) Acute cystitis without hematuria Status: Acute (2) Acute metabolic encephalopathy Status: Acute (3) Advanced dementia Status: Chronic - Transfer Medications Prescriptions: Amoxicillin 250 mg PO Q8H #9 capsule Home Medications: Aspirin [Lo-Dose Aspirin EC] 81 mg PO DAILY 12/27/16 [History] Atorvastatin Calcium [Lipitor] 20 mg PO DAILY 12/27/16 [History] Buspirone HCl [Buspar] 10 mg PO BID 12/27/16 [History] Carvedilol [Coreg] 6.25 mg PO BID 12/27/16 [History] Dextromethorphan HBr/Quinidine [Nuedexta 20-10 mg Capsule] 1 cap PO BID [History] Donepezil HCl [Aricept] 10 mg PO DAILY 12/27/16 [History] Ergocalciferol (VITAMIN D2) [Vitamin D] 400 unit PO DAILY 12/27/16 [History] GuaiFENesin/Dextromethorphan [Robitussin Cough-Chest Dm Liq] 5 ml PO Q12H PRN [History] HYDROcodone/Acet 5/325 mg [[place] 5-325 mg] 1 tab PO Q6H PRN 12/27/16 [History] Haloperidol 2 mg PO AD PRN 12/27/16 [History] Lisinopril [Zestril] 10 mg PO DAILY 12/27/16 [History] Loperamide [Imodium] 2 mg PO Q4HR PRN 12/27/16 [History] Magnesium Hydroxide [Milk of Magnesia] 60 ml PO DAILY PRN 12/27/16 [History] Memantine HCl [Namenda Xr] 28 mg PO DAILY 12/27/16 [History] Nitroglycerin [Nitrostat] 0.4 mg SL Q5M PRN 12/27/16 [History] Polyvinyl Alcohol [Artificial Tears] 1 drop BOTH EYES Q2H PRN 12/27/16 [History] Sertraline [Zoloft] 50 mg PO DAILY 12/27/16 [History] Vitamin E Acid Succinate [Vitamin E] 400 units PO DAILY 12/27/16 [History] Amoxicillin 250 mg PO Q8H #9 capsule 02/14/17 [Rx] Allergies/Adverse Reactions: Allergies morphine Allergy (Verified 12/27/16 15:40) See Comments UNKNOWN REACTION- LISTED ON ECF MAR SHEET sulfasalazine Allergy (Verified 12/27/16 15:40) See Comments UNKNOWN REACTION- LISTED ON ECF MAR SHEET - Respiratory Orders Oxygen / L per min (Keep saturation greater than 90%) Smoking Cessation: Smoking cessation has been advised. For more information, call the [employer] Quit Line at 4-569-INIM-NOW. - Ancillary Orders May use pressure relief devices daily prn - Advance Directives Code Status: DNR-Comfort Care - Mobility Orders Bedrest - Rehabiliation Orders Rehab Potential: Poor - Treatments Skin tear care topically daily PRN per policy, May check for fecal impaction rectally daily PRN, Fleet enema rectally every other day PRN cleansing purposes - Diet Orders Regular (Diet as before) CERTIFICATION: I certify that the transfer of the above named patient to an Extended Care Facility is necessary for the continuing treatment of the diagnosis listed. The above information is true and accurate reflection of patient's current condition. Confidential - Redisclosure prohibited without a patient's written consent.
== END 2016-12-29 12:53 | DRG 689 ==
LOC: 3BNU 13:40 → EMEROO 13:40 → 2NENU 15:55 → SUATTDRO 18:08
PROVIDERS: ADMIT Nurse Practitioner Family; ATTEND Internal Medicine

== ENCOUNTER 2017-02-19 14:16 | Observation (INO) ==
--- NOTE | 2017-02-19 14:35 | Emergency Department Note ---
START Narrative - START START: I examined this patient and my medical decision-making was reviewed with the STAMP ANALYST/PA/Advanced Practice Nurse/Resident Physician. I agree with the documented findings, disposition and treatment plan as described except to the extent set forth below. I did see the patient spoke with the nurse as the patient is nonverbal and the stories that she did have rectal bleeding at the extended care facility. Workup is being initiated including labs including CBC and type and screen [id number]
[2017-02-19 15:16] LABS: Basophils % 0.3 %; Eosinophils # 0.2 K/mcL (0.0-0.6); Hematocrit 31.7 % (35.3-44.9); Hemoglobin 10.3 g/dL (11.5-15.4); Immature Granulocytes % 0.4 % (0-4); Lymphocytes # 0.8 K/mcL (0.6-4.6); Lymphocytes % 10.3 %; Mean Corpuscular HGB Conc 32.5 g/dL (31.6-35.5); Mean Corpuscular Volume 89.3 fL (83.0-100.0); Mean Platelet Volume 9.2 fL (9.4-12.4); Monocytes # 0.6 K/mcL (0.0-1.3); Monocytes % 7.5 %; Neutrophils # 6.3 K/mcL (1.6-8.9); Platelet Count 253 K/mcL (140-400); Red Blood Count 3.55 M/mcL (3.82-4.97); Red Cell Distribution Width 14.4 % (11.5-14.5); Segmented Neutrophils % 79.5 %
[2017-02-19 15:25] LABS: Prothrombin Time 11.2 Seconds (9.4-12.1)
[2017-02-19 15:28] LABS: Activated Partial Thrombo Time 25.2 Seconds (26.0-36.0)
[2017-02-19 15:29] LABS: BUN/Creatinine Ratio 51 (6-26); Blood Urea Nitrogen 32 mg/dL (7-20); Calcium 8.2 mg/dL (8.6-10.8); Carbon Dioxide 22 mEq/L (19-29); Chloride 109 mEq/L (98-109); Glucose 109 mg/dL (70-99); Osmolality,Calculated 297 (280-300); Potassium 4.7 mEq/L (3.5-4.5); Sodium 140 mEq/L (136-145); eGFR For African Americans > 60 (> 60); eGFR For Non-African Americans > 60 (> 60)
[2017-02-19] MEDS ORDERED: *HR* LORazepam 2 MG/ML VIAL IVP ONE ×2 (15:46→20:03)
--- NOTE | 2017-02-19 15:49 | Emergency Department Note ---
Disposition Clinical Impression: GI bleed Qualifiers: GI bleed type/associated pathology: unspecified gastrointestinal hemorrhage type Qualified Code(s): K92.2 - Gastrointestinal hemorrhage, unspecified Disposition: Admitted As Inpatient Condition: Serious Time of Disposition: 17:00 GI Bleed HPI - General Chief complaint: ED GI Bleed Stated complaint: GI bleed Time Seen by Provider: 02/19/17 14:18 Source: EMS Mode of arrival: EMS Limitations: altered mental status Nursing Notes Reviewed: Yes Vital Signs Reviewed: Yes - History of Present Illness HPI Narrative: Ms. Finney is an 86 year old female that presents from [facility] for GI bleed. I spoke to Nurse coordinator of ECF that states staff first noticed the bleeding approx 10am with multiple large dark red clots noted with patient's bowel movement. ECF reports that stool was sent for further testing per facilities' [employer]. On further examination at approx 12:30 patient was noted to have a large amount of dark red blood without stool present in her adult diaper. ECF states in the few months she has been at their facility they has been no other episodes of bleeding. Patient on daily aspirin, but no anticoagulation. ECF records showing history of diverticulitis. Not able to confirm HPI or past medical history secondary to baseline dementia. Patient's brother and [id number] present at bedside that state GI history of obstruction in 2004 that required short-term colostomy, since reversed. Pt Subjective Complaint: gross bloody stools Onset (ago): hour(s) Consistency: constant - Related Data Home Medications Medication Instructions Recorded Confirmed Aspirin [Lo-Dose Aspirin EC] 81 mg PO DAILY 12/27/16 12/27/16 Atorvastatin Calcium [Lipitor] 20 mg PO DAILY 12/27/16 12/27/16 Buspirone HCl [Buspar] 10 mg PO BID 12/27/16 12/27/16 Carvedilol [Coreg] 6.25 mg PO BID 12/27/16 12/27/16 Dextromethorphan HBr/Quinidine 1 cap PO BID 12/27/16 12/27/16 [Nuedexta 20-10 mg Capsule] Donepezil HCl [Aricept] 10 mg PO DAILY 12/27/16 12/27/16 Ergocalciferol (VITAMIN D2) 400 unit PO DAILY 12/27/16 12/27/16 [Vitamin D] GuaiFENesin/Dextromethorphan 5 ml PO Q12H PRN 12/27/16 12/27/16 [Robitussin Cough-Chest Dm Liq] HYDROcodone/Acet 5/325 mg [[place] 1 tab PO Q6H PRN 12/27/16 12/27/16 5-325 mg] Haloperidol 2 mg PO AD PRN 12/27/16 12/27/16 Lisinopril [Zestril] 10 mg PO DAILY 12/27/16 12/27/16 Loperamide [Imodium] 2 mg PO Q4HR PRN 12/27/16 12/27/16 Magnesium Hydroxide [Milk of 60 ml PO DAILY PRN 12/27/16 12/27/16 Magnesia] Memantine HCl [Namenda Xr] 28 mg PO DAILY 12/27/16 12/27/16 Nitroglycerin [Nitrostat] 0.4 mg SL Q5M PRN 12/27/16 12/27/16 Polyvinyl Alcohol [Artificial 1 drop BOTH EYES Q2H PRN 12/27/16 12/27/16 Tears] Sertraline [Zoloft] 50 mg PO DAILY 12/27/16 12/27/16 Vitamin E Acid Succinate [Vitamin 400 units PO DAILY 12/27/16 12/27/16 E] Allergies Allergy/AdvReac Type Severity Reaction Status Date / Time morphine Allergy See Verified 12/27/16 15:40 Comments sulfasalazine Allergy See Verified 12/27/16 15:40 Comments Limitations: ROS unobtainable due to patients medical condition Past Medical History - Past Medical History Source: old records reviewed, obtained from family Medical history: Reports: arthritis, CVA, dementia, hyperlipidemia, hypertension , myocardial infarction Psychiatric history: Reports: anxiety, depression - Social History Smoking Status: Unknown if ever smoked Alcohol use: Reports: unknown Drug use: Reports: unknown Physical Exam - General Limitations: altered mental status (Patient incomprehensible other than some yes or no questioning. ) General appearance: alert, in no apparent distress - Head Head exam: atraumatic, normocephalic - Eye Eye exam: Present: normal appearance, EOMI - ENT ENT exam: normal exam, mucous membranes moist - Neck Neck exam: Present: normal inspection, trachea midline - Chest Chest inspection: Present: normal inspection, symmetric chest wall rise. Absent : tenderness - Respiratory Respiratory exam: Present: normal lung sounds bilaterally. Absent: respiratory distress, wheezes - Cardiovascular Cardiovascular exam: Present: regular rate, normal rhythm, +S1, +S2 - Abdominal Exam Abdominal exam: Present: soft, Non-Tender, normal bowel sounds. Absent: distention, guarding, rebound, rigidity - Extremities Exam Extremities exam: Present: tenderness, normal capillary refill. Absent: pedal edema - Neurological Exam Neurological exam: Present: alert. Absent: oriented X3 - Psychiatric Psychiatric exam: Present: agitated - Skin Skin exam: Present: warm, dry, intact, other (noted scaring, brusing, and darkening skin of forearms bilaterally). Absent: normal color Course - Reevaluation(s) Reevaluation #1: Patient appears agitated on exam with ongoing yelling/crying out. Family and ECF noted this has been ongoing. Will give 1mg Ativan for agitation. - Consultations Consultation #1: Spoke to hospitalist who accepted patient. Time: 17:23 Vital Signs Temperature 97.9 F 02/19/17 14:17 Pulse Rate 83 02/19/17 14:17 Respiratory Rate 14 02/19/17 14:17 Blood Pressure 108/72 02/19/17 14:17 O2 Sat by Pulse Oximetry 96 02/19/17 14:17 Temperature 97.9 F 02/19/17 14:17 Pulse Rate 86 02/19/17 15:51 Respiratory Rate 18 02/19/17 16:50 Blood Pressure 100/64 02/19/17 16:50 O2 Sat by Pulse Oximetry 97 02/19/17 15:51 Oxygen Delivery Oxygen Delivery Nasal Cannula GI Bleed - [facility] Narrative Medical decision making narrative: Confirmed report of blood in stool from ECF staff. Hgb noted to decline from 14.6 two months ago to 10.3 today. Concern with active bleeding and declining Hgb with need for hospital admission and observation. Difficulty confirming history with patient's baseline dementia, but family and past records note GI history includes divertiulitis, obstruction, and temporary colostomy. - Medical Records Medical records reviewed: Yes I reviewed the patient's medical records. - Lab Data Lab results reviewed: Yes I reviewed the patient's lab results. Result diagrams: 02/19/17 15:08 02/19/17 15:08 Lab Results 04/05/3102/19/17 02/19/17 Range/Units 15:08 15:08 15:08 WBC 7.9 (4.3-11.1) K/mcL RBC 3.55 L (3.82-4.97) M/mcL Hgb 10.3 L (11.5-15.4) g/dL Hct 31.7 L (35.3-44.9) % MCV 89.3 (83.0-100.0) fL MCH 29.0 (28.0-33.3) pg MCHC 32.5 (31.6-35.5) g/dL RDW 14.4 (11.5-14.5) % Plt Count 253 (140-400) K/mcL MPV 9.2 L (9.4-12.4) fL Immature Gran % 0.4 (0-4) % Seg Neutrophils % 79.5 % Lymphocytes % 10.3 % Monocytes % 7.5 % Eosinophils % 2.0 % Basophils % 0.3 % Neutrophils # 6.3 (1.6-8.9) K/mcL Lymphocytes # 0.8 (0.6-4.6) K/mcL Monocytes # 0.6 (0.0-1.3) K/mcL Eosinophils # 0.2 (0.0-0.6) K/mcL Basophils # 0.0 (0.0-0.2) K/mcL PT 11.2 (9.4-12.1) Seconds INR 1.0 APTT 25.2 L (26.0-36.0) Seconds Sodium 140 (136-145) mEq/L Potassium 4.7 H (3.5-4.5) mEq/L Chloride 109 (98-109) mEq/L Carbon Dioxide 22 (19-29) mEq/L BUN 32 H (7-20) mg/dL Creatinine 0.63 (0.57-1.11) mg/dL Est GFR ( Amer) > 60 (> 60) Est GFR (Non-Af Amer) > 60 (> 60) BUN/Creatinine Ratio 51 H (6-26) Glucose 109 H (70-99) mg/dL Calculated Osmolality 297 (280-300) Calcium 8.2 L (8.6-10.8) mg/dL Blood Type Antibody Screen 02/19/17 Range/Units 15:08 WBC (4.3-11.1) K/mcL RBC (3.82-4.97) M/mcL Hgb (11.5-15.4) g/dL Hct (35.3-44.9) % MCV (83.0-100.0) fL MCH (28.0-33.3) pg MCHC (31.6-35.5) g/dL RDW (11.5-14.5) % Plt Count (140-400) K/mcL MPV (9.4-12.4) fL Immature Gran % (0-4) % Seg Neutrophils % % Lymphocytes % % Monocytes % % Eosinophils % % Basophils % % Neutrophils # (1.6-8.9) K/mcL Lymphocytes # (0.6-4.6) K/mcL Monocytes # (0.0-1.3) K/mcL Eosinophils # (0.0-0.6) K/mcL Basophils # (0.0-0.2) K/mcL PT (9.4-12.1) Seconds INR APTT (26.0-36.0) Seconds Sodium (136-145) mEq/L Potassium (3.5-4.5) mEq/L Chloride (98-109) mEq/L Carbon Dioxide (19-29) mEq/L BUN (7-20) mg/dL Creatinine (0.57-1.11) mg/dL Est GFR ( Amer) (> 60) Est GFR (Non-Af Amer) (> 60) BUN/Creatinine Ratio (6-26) Glucose (70-99) mg/dL Calculated Osmolality (280-300) Calcium (8.6-10.8) mg/dL Blood Type O POSITIVE Antibody Screen NEGATIVE - EKG Data EKG attestation: Yes I reviewed and interpreted this EKG. EKG shows normal: sinus rhythm Rate: normal Rhythm: PVC's [place]/QRS: RBBB When compared to previous EKG there are: previous EKG unavailable
[2017-02-19] MEDS ORDERED: Naloxone 0.4 MG/ML INJ IVP PRN (17:16)
--- NOTE | 2017-02-19 17:38 | Internal Med History&Physical ---
Addendum entered and electronically signed by Hannah Jimenez CNP 02/19/17 18: 31: Called patient's brother, Jorge Finney and discussed code status. He stated patient should be DNR-CC, as was decided during previous hospitalization. Discussed whether to proceed with colonoscopy, patient's brother stated that if it would be helpful, we should proceed with procedure. Original Note: <Hannah Jimenez - Last Filed: 02/19/17 18:30> Date of Encounter: 02/19/17 Time of Encounter: 17:31 Assessment and Plan (1) GI bleed Current visit: Yes Status: Acute [facility] with reports of bright red blood in her adult diaper as well as black stool. Hgb 10.3, down from 14.6 on . Hold aspirin FOB ordered type and screen obtained Hgb/Hct Q6hrs NPO IV fluids 0.9NS at 75mL/hr Consult to GI ordered. Qualifiers: GI bleed type/associated pathology: unspecified gastrointestinal hemorrhage type Qualified Code(s): K92.2 - Gastrointestinal hemorrhage, unspecified (2) Advanced dementia Current visit: No Status: Chronic Patient makes noises, but no sensible words come out. Does not follow commands. Continue home doses of Namenda, Aricept (3) Goals of care, counseling/discussion Current visit: No Status: Chronic During previous hospitalization, patient was made DNR-CC, however she came from senior care with paperwork that stated she is Full Code. Patient's family not available on assessment. Will attempt to get in touch with them to clarify wishes. Consider Palliative care consult as well. (4) DVT prophylaxis Current visit: No Status: Acute Up to chair BID sequential compression devices Pharmacologic prophylaxis is contraindicated in patient with GI bleed. Internal Medicine - H&P: HPI Chief complaint: bloody stool Admitted From: Emergency Dept Plans for Post Hospital Care: Transfer Care Home Care History of present illness: Ms. Finney is a 86 year old female with hypertension, hyperlipidemia, coronary artery disease, dementia was sent to the ED from [facility] after a sound that she had noted bright red blood and black stool. Patient is nonverbal and I was unable to assess any review of systems. Evaluation in the emergency department showed hemoglobin of 10.3, down from previous value of 14.6 on December 28. She was mildly hyperkalemic with potassium of 4.7. On exam, patient appears pale and is arousable to verbal stimuli, but not oriented , does not answer questions appropriately. Heart is regular rate and rhythm, lungs are clear bilaterally to auscultation. Abdomen is soft and nontender to palpation. Past Med Surg Social Fam HX - Past Medical History Medical history: arthritis, CVA, dementia, hyperlipidemia, hypertension, myocardial infarction Psychiatric history: anxiety, depression - Past Surgical History Surgical History: colostomy (with reversal) - Social History Smoking Status: Unknown if ever smoked Alcohol use: unknown Drug use: unknown Internal Medicine - H&P: Meds Aspirin [Lo-Dose Aspirin EC] 81 mg PO DAILY 12/27/16 [History] Atorvastatin Calcium [Lipitor] 20 mg PO DAILY 12/27/16 [History] Buspirone HCl [Buspar] 10 mg PO BID 12/27/16 [History] Carvedilol [Coreg] 6.25 mg PO BID 12/27/16 [History] Dextromethorphan HBr/Quinidine [Nuedexta 20-10 mg Capsule] 1 cap PO BID [History] Donepezil HCl [Aricept] 10 mg PO DAILY 12/27/16 [History] Ergocalciferol (VITAMIN D2) [Vitamin D] 400 unit PO DAILY 12/27/16 [History] GuaiFENesin/Dextromethorphan [Robitussin Cough-Chest Dm Liq] 5 ml PO Q12H PRN [History] HYDROcodone/Acet 5/325 mg [[place] 5-325 mg] 1 tab PO Q6H PRN 12/27/16 [History] Haloperidol 2 mg PO AD PRN 12/27/16 [History] Lisinopril [Zestril] 10 mg PO DAILY 12/27/16 [History] Loperamide [Imodium] 2 mg PO Q4HR PRN 12/27/16 [History] Magnesium Hydroxide [Milk of Magnesia] 60 ml PO DAILY PRN 12/27/16 [History] Memantine HCl [Namenda Xr] 28 mg PO DAILY 12/27/16 [History] Nitroglycerin [Nitrostat] 0.4 mg SL Q5M PRN 12/27/16 [History] Polyvinyl Alcohol [Artificial Tears] 1 drop BOTH EYES Q2H PRN 12/27/16 [History] Sertraline [Zoloft] 50 mg PO DAILY 12/27/16 [History] Vitamin E Acid Succinate [Vitamin E] 400 units PO DAILY 12/27/16 [History] Allergies morphine Allergy (Verified 12/27/16 15:40) See Comments UNKNOWN REACTION- LISTED ON ECF MAR SHEET sulfasalazine Allergy (Verified 12/27/16 15:40) See Comments UNKNOWN REACTION- LISTED ON ECF MAR SHEET ROS unobtainable: due to mental status All Systems PM: A 10-system review of systems was performed and is negative for pertinent findings except as documented above in the HPI. - Constitutional Vitals: Temp Pulse Resp BP Pulse Ox 97.9 F 86 18 100/64 97 02/19/17 14:17 02/19/17 15:51 02/19/17 16:50 02/19/17 16:50 02/19/17 15:51 General appearance: Present: A&O X 0, no acute distress - Head Head exam: Present: atraumatic, normocephalic - Eye Eye exam: Present: PERRL, sclera anicteric Pupils: Present: PERRL Additional comments: pale conjunctiva - Neck Neck exam general surgery: Present: supple, trachea midline. Absent: lymphadenopathy - Respiratory Respiratory exam: Present: CTAB. Absent: accessory muscle use, rales, rhonchi, wheezes - Cardiovascular Cardiovascular exam: Present: RRR, +S1, +S2. Absent: diastolic murmur, gallop, rubs, systolic murmur - GI/Abdominal GI/Abdominal exam: Present: normal bowel sounds, soft, no peritoneal signs. Absent: distended, tenderness - Extremities Exam Extremities exam: Present: warm, radial pulses palpable and symetrical. Absent : calf tenderness, cyanotic, pedal edema - Neurological Exam Neurological exam: Absent: facial droop - Expanded Neurological Exam Patient oriented to: Absent: person, place, time Coma Scale Eye Opening: To Voice Coma Scale Motor Response: Localizes to Pain Coma Scale Verbal Response: Incomprehensible Coma Scale Total: 10 - Skin Skin exam: Present: dry, intact Internal Med - H&P Results - Labs CBC & Chem 7: 02/19/17 15:08 02/19/17 15:08 <Alan Hutchinson T - Last Filed: 02/19/17 19:16> Date of Encounter: 02/19/17 Internal Medicine - H&P: HPI History of present illness: Ms. Finney is a 86 year old female All Systems PM: A 10-system review of systems was performed and is negative for pertinent findings except as documented above in the HPI. - Constitutional Vitals: Temp Pulse Resp BP Pulse Ox 98.3 F 92 18 128/79 100 02/19/17 17:56 02/19/17 17:56 02/19/17 17:56 02/19/17 17:56 02/19/17 17:56 Internal Med - H&P Results - Labs CBC & Chem 7: 02/19/17 18:21 02/19/17 15:08 Labs: Short CBC 02/19/17 Range/Units 18:21 Hgb 10.4 L (11.5-15.4) g/dL Hct 32.1 L (35.3-44.9) % - Attending Attestation 86 Y/O F, resident of SNF, advanced dementia DNR, sent from SNF due to bleeding per rectum, and presence of blood after BM. Patient is oriented X0 and is unable to give a history, she hollers often and SNF confirms this is her baseline. when she is distracted, abdomen is not tender when patient is adequately distracted and chest is clear. NO pedal edema Labs and Imaging reviewed; 3 point drop in HB from 14 in 12/2016 to 10 on admission, labs and imaging otherwise unremarkable A/P LGIB-Keep NPO for colonoscopy, start bowel prep, consult GI, monitor Hb q6- 8h till stable, resume home meds Rest of details as in CAYETANO Vivas's documentation...
[2017-02-19] MEDS: 0.9 % Sodium Chloride 1,000 ML IVC SCH (18:17)
[2017-02-19 18:32] LABS: Hematocrit 32.1 % (35.3-44.9); Hemoglobin 10.4 g/dL (11.5-15.4)
[2017-02-19] MEDS ORDERED: HALOPERIDOL 2 MG PO PRN (20:04)
[2017-02-19] MEDS: *HR* HYDROcodone/Acet 5/325 mg TABLET PO PRN (21:02)
[2017-02-20 01:11] LABS: Basophils % 0.7 %; Eosinophils # 0.3 K/mcL (0.0-0.6); Eosinophils % 5.5 %; Hematocrit 27.5 % (35.3-44.9); Immature Granulocytes % 0.2 % (0-4); Lymphocytes # 1.2 K/mcL (0.6-4.6); Mean Corpuscular Hemoglobin 28.9 pg (28.0-33.3); Mean Corpuscular Volume 90.5 fL (83.0-100.0); Mean Platelet Volume 9.5 fL (9.4-12.4); Monocytes # 0.3 K/mcL (0.0-1.3); Monocytes % 7.5 %; Neutrophils # 2.7 K/mcL (1.6-8.9); Platelet Count 197 K/mcL (140-400); Red Blood Count 3.04 M/mcL (3.82-4.97); Red Cell Distribution Width 14.5 % (11.5-14.5); Segmented Neutrophils % 59.1 %
[2017-02-20 01:17] LABS: Hemoglobin 8.8 g/dL (11.5-15.4)
[2017-02-20 01:27] LABS: BUN/Creatinine Ratio 47 (6-26); Blood Urea Nitrogen 27 mg/dL (7-20); Calcium 8.2 mg/dL (8.6-10.8); Carbon Dioxide 20 mEq/L (19-29); Chloride 110 mEq/L (98-109); Glucose 85 mg/dL (70-99); Osmolality,Calculated 294 (280-300); Potassium 4.4 mEq/L (3.5-4.5); Sodium 140 mEq/L (136-145); eGFR For African Americans > 60 (> 60); eGFR For Non-African Americans > 60 (> 60)
[2017-02-20] MEDS: *HR* HYDROcodone/Acet 5/325 mg TABLET PO PRN (03:47)
[2017-02-20 06:11] LABS: Hematocrit 28.1 % (35.3-44.9); Hemoglobin 9.1 g/dL (11.5-15.4)
[2017-02-20] MEDS ORDERED: (Memantine Hcl [Namenda Xr] 28 MG) PO SCH (09:00)
[2017-02-20] MEDS: 0.9 % Sodium Chloride 1,000 ML IVC SCH ×2 (09:13→21:55)
[2017-02-20 11:47] LABS: Hematocrit 26.1 % (35.3-44.9); Hemoglobin 8.6 g/dL (11.5-15.4); Mean Corpuscular Hemoglobin 29.6 pg (28.0-33.3); Mean Corpuscular Volume 89.7 fL (83.0-100.0); Mean Platelet Volume 10.1 fL (9.4-12.4); Platelet Count 256 K/mcL (140-400); Red Blood Count 2.91 M/mcL (3.82-4.97); Red Cell Distribution Width 14.5 % (11.5-14.5)
[2017-02-20] MEDS: *HR* HYDROmorphone (PF) 1 MG/ML SYRINGE IVP PRN ×4 (11:55→23:21)
--- NOTE | 2017-02-20 12:14 | Palliative - Consult Note ---
Date of Encounter: 02/20/17 Time of Encounter: 12:07 - Assessment and Plan (1) Abdominal pain Current Visit: Yes Status: Acute Assessment and plan: Patient moaning and agitated. She appears to moan louder with palpation to the abdomen. No guarding. BM with dark red blood per nurse. CUrrent medications: hydromorphone 1mg IV as needed for pain. Consider that patient is unable to communicate verbally and will demonstrate pain with moaning and agitation. Qualifiers: Abdominal location: generalized Qualified Code(s): R10.84 - Generalized abdominal pain (2) Advanced dementia Current Visit: Yes Status: Chronic Assessment and plan: Supportive care. (3) Goals of care, counseling/discussion Current Visit: Yes Status: Chronic Assessment and plan: Goals of care discussion with Jorge Finney (patient's brother and POA). Decision was made to pursue comfort care and DNR-CC status was supported. Main focus is on pain and anxiety control. No further lab draws, diagnostics, invasive procedures. D/C IV fluids and reduce pill burden. Discussed hospice care. Unsure of status of medicaid application at [facility]. Will consult with secondary social studies teacher. Plan for follow-up family meeting with Mr. Charanjit Finney tomorrow morning between -. (4) GI bleed Current Visit: Yes Status: Acute Assessment and plan: Supportive care. Comfort measures. No further lab testing or diagnostic testing. Ms. Finney is a shelter care patient at a local [facility]. Awaiting arrival of her brother/POA to determine further goals of care. Qualifiers: GI bleed type/associated pathology: unspecified gastrointestinal hemorrhage type Qualified Code(s): K92.2 - Gastrointestinal hemorrhage, unspecified (5) Agitation Current Visit: Yes Status: Acute Assessment and plan: Lorazepam 1mg IV as needed for agitation. Consider alternative causes of agitation such as pain or incontinence. Palliative-CN HPI - Data of Consult Patient: known to practice within the last 3 years Consult date: 02/20/17 Requesting Physician: Bryson Perkins MD Primary Care Provider: PCP NO - Consult Narrative Palliative Care/Comfort Measures: Palliative care Reason for consult: Goals of care, symptom management History of present illness: Ms. Finney is a 86 year old female presenting to the emergency department with rectal bleeding. She is a shelter resident at [facility] due to her dementia. She is unable to communicate verbally, but does call out and moan. History was taken from the medical record. The palliative care team was involved in her care during a previous admission. During that time, the decision was made to pursue comfort care. CC: Bryson Perkins MD Past Med Surg Social Fam HX - Past Medical History Source: old records reviewed Medical history: arthritis, CVA, dementia, hyperlipidemia, hypertension, myocardial infarction Psychiatric history: anxiety, depression - Past Surgical History Surgical History: colostomy (with reversal) - Social History Smoking Status: Unknown if ever smoked Alcohol use: unknown Drug use: unknown Medications and Allergies Aspirin [Lo-Dose Aspirin EC] 81 mg PO DAILY 12/27/16 [History] Atorvastatin Calcium [Lipitor] 20 mg PO DAILY 12/27/16 [History] Buspirone HCl [Buspar] 10 mg PO BID 12/27/16 [History] Carvedilol [Coreg] 6.25 mg PO BID 12/27/16 [History] Dextromethorphan HBr/Quinidine [Nuedexta 20-10 mg Capsule] 1 cap PO BID [History] Donepezil HCl [Aricept] 10 mg PO DAILY 12/27/16 [History] Ergocalciferol (VITAMIN D2) [Vitamin D] 400 unit PO DAILY 12/27/16 [History] GuaiFENesin/Dextromethorphan [Robitussin Cough-Chest Dm Liq] 5 ml PO Q12H PRN [History] HYDROcodone/Acet 5/325 mg [[place] 5-325 mg] 1 tab PO Q6H PRN 12/27/16 [History] Haloperidol 2 mg PO AD PRN 12/27/16 [History] Lisinopril [Zestril] 10 mg PO DAILY 12/27/16 [History] Loperamide [Imodium] 2 mg PO Q4HR PRN 12/27/16 [History] Magnesium Hydroxide [Milk of Magnesia] 60 ml PO DAILY PRN 12/27/16 [History] Memantine HCl [Namenda Xr] 28 mg PO DAILY 12/27/16 [History] Nitroglycerin [Nitrostat] 0.4 mg SL Q5M PRN 12/27/16 [History] Polyvinyl Alcohol [Artificial Tears] 1 drop BOTH EYES Q2H PRN 12/27/16 [History] Sertraline [Zoloft] 50 mg PO DAILY 12/27/16 [History] Vitamin E Acid Succinate [Vitamin E] 400 units PO DAILY 12/27/16 [History] Allergies morphine Allergy (Verified 12/27/16 15:40) See Comments UNKNOWN REACTION- LISTED ON ECF MAR SHEET sulfasalazine Allergy (Verified 12/27/16 15:40) See Comments UNKNOWN REACTION- LISTED ON ECF MAR SHEET ROS unobtainable: due to mental status Palliative Care-Exam - Constitutional Vitals: Temp Pulse Resp BP Pulse Ox 97.5 F L 91 16 119/77 99 02/20/17 10:24 02/20/17 10:24 02/20/17 10:24 02/20/17 10:24 02/20/17 10:24 Exam: 86 year old female, moaning, pale complexion. - Head Head Exam: Present: atraumatic - Eye Eye exam: Present: EOMI - ENT ENT exam: Present: mucous membranes dry - Respiratory Respiratory exam: Present: decreased breath sounds. Absent: respiratory distress, tachypnea - Cardiovascular Cardiovascular exam: Present: RRR. Absent: systolic murmur - GI/Abdominal Exam GI/Abdominal exam: Present: normal bowel sounds, soft - Rectal Rectal exam: Present: black stool, bloody stool - Extremities Exam Extremities exam: Present: normal inspection. Absent: pedal edema - Neurological Exam Neurological exam: Present: altered. Absent: oriented X3 - Psychiatric Psychiatric exam: Present: agitated, anxious - Skin Skin exam: Present: dry, pallor Internal Medicine - CN: Reslt - Labs CBC & Chem 7: 02/20/17 11:35 02/20/17 00:48 Labs: Short CBC 02/19/17 02/20/17 02/20/17 Range/Units 18:21 00:48 05:51 WBC 4.6 (4.3-11.1) K/mcL Hgb 10.4 L 8.8 L D 9.1 L (11.5-15.4) g/dL Hct 32.1 L 27.5 L 28.1 L (35.3-44.9) % Plt Count 197 (140-400) K/mcL Neutrophils # 2.7 (1.6-8.9) K/mcL 02/20/17 Range/Units 11:35 WBC 6.2 (4.3-11.1) K/mcL Hgb 8.6 L (11.5-15.4) g/dL Hct 26.1 L (35.3-44.9) % Plt Count 256 (140-400) K/mcL Neutrophils # (1.6-8.9) K/mcL BMP 02/20/17 00:48 Sodium 140 Potassium 4.4 Chloride 110 H Carbon Dioxide 20 BUN 27 H Creatinine 0.58 Glucose 85 Calcium 8.2 L - ABG Interpretation ABG results: PT/INR, D-dimer PT 11.2 Seconds (9.4-12.1) 02/19/17 15:08 Consult Discharge Plan - Plan Referrals: NO,PCP [Primary Care Provider] - Palliative Quality Palliative Quality: Screen for Code Status: Yes, Screen for Goals of Care: Yes, Screen for Pain: Yes, If Pain Regimen Started, Initiate Bowel Regimen: NA (GI bleed), Screen for Nausea/Vomitting: Yes Code Status: 02/19/17 17:16 Resuscitation Status: Active [RES] Routine Comment: Per paperwork from [facility] Resuscitation Status: Full Code 02/19/17 18:29 Resuscitation Status: Active [RES] Routine Comment: Discussed with patient's brother Resuscitation Status: DNR-Comfort Care
[2017-02-20] MEDS ORDERED: Ziprasidone injection 20 MG/ML VIAL IM ONE (15:39)
--- NOTE | 2017-02-20 18:03 | Internal Med Progress Note ---
Date of Encounter: 02/20/17 Time of Encounter: 11:00 - Assessment and plan (1) Advanced dementia Current Visit: Yes Status: Chronic Assessment and plan: We will start Geodon for behavioral features. I will stop Namenda as her dementia is far too advanced for Namenda to provide any type of benefit. (2) DVT prophylaxis Current Visit: No Status: Acute Assessment and plan: Not needed due to comfort care only. (3) Goals of care, counseling/discussion Current Visit: Yes Status: Chronic Assessment and plan: I have discussed the goals of care with the patient's POA. I have explained that the patient will likely not benefit from a colonoscopy or any invasive studies attempting to identify the source of bleeding. The patient has extremely poor quality of life and advanced dementia and they agree that comfort care physical would be preferable at this time. Will treat pain anxiety and nausea. I will discuss discontinue all unnecessary medications, stop all unnecessary needle sticks. (4) GI bleed Current Visit: Yes Status: Acute Assessment and plan: She has a large amount of rectal bleeding, possibly related to diverticular bleed versus colorectal cancer. I have discussed the plan of care with the family and they will not want to pursue any aggressive intervention. We will proceed with comfort care only. She has large amounts of rectal bleeding and expected to cause moderate to severe anemia. She has pain that cannot be controlled with oral medication and requires IV opiates and therefore will need likely necessary treatment in the hospital for greater than 2 midnights and will be admitted as inpatient. For past medical history family history social history and review of systems please refer to the H&P dictated yesterday at this facility. There are no updates or changes. Qualifiers: GI bleed type/associated pathology: anorectal hemorrhage Qualified Code(s) : K62.5 - Hemorrhage of anus and rectum (5) Abdominal pain Current Visit: Yes Status: Acute Assessment and plan: We will treat her with intravenous hydromorphone. Qualifiers: Abdominal location: generalized Qualified Code(s): R10.84 - Generalized abdominal pain (6) Agitation Current Visit: Yes Status: Acute Assessment and plan: Intramuscular Geodon. The patient is at high risk for morbidity and mortality and complications due to treatment with IV control substances. - Subjective Interval history: Patient brought from care home for evaluation of rectal bleeding. She cannot provide history due to advanced dementia. She tends to yell out almost continuously which her family member says is close to her baseline. She does complain of abdominal pain at this time. - Constitutional Vitals: Temp Pulse Resp BP Pulse Ox 97.7 F 69 18 118/65 98 02/20/17 14:53 02/20/17 14:53 02/20/17 14:53 02/20/17 14:53 02/20/17 14:53 General appearance: Present: A&O X 0, no acute distress - GI/Abdominal GI/Abdominal exam: Present: normal bowel sounds, soft, no peritoneal signs. Absent: distended, tenderness Additional comments: Rectal exam reveals a large amount of blood and blood clots in the diaper and around the groin area, prolapsed rectal mucosa with external hemorrhoids nonbleeding, digital rectal exam with normal tone and dark blood retrieved on probing. - Extremities Exam Extremities exam: Present: warm, radial pulses palpable and symetrical. Absent : calf tenderness, cyanotic, pedal edema - Skin Skin exam: Present: dry, intact Internal Medicine: Result - Labs CBC & Chem 7: 02/20/17 11:35 02/20/17 00:48 Labs: Short CBC 02/19/17 02/20/17 02/20/17 Range/Units 18:21 00:48 05:51 WBC 4.6 (4.3-11.1) K/mcL Hgb 10.4 L 8.8 L D 9.1 L (11.5-15.4) g/dL Hct 32.1 L 27.5 L 28.1 L (35.3-44.9) % Plt Count 197 (140-400) K/mcL Neutrophils # 2.7 (1.6-8.9) K/mcL 02/20/17 Range/Units 11:35 WBC 6.2 (4.3-11.1) K/mcL Hgb 8.6 L (11.5-15.4) g/dL Hct 26.1 L (35.3-44.9) % Plt Count 256 (140-400) K/mcL Neutrophils # (1.6-8.9) K/mcL BMP 02/20/17 00:48 Sodium 140 Potassium 4.4 Chloride 110 H Carbon Dioxide 20 BUN 27 H Creatinine 0.58 Glucose 85 Calcium 8.2 L - ABG Interpretation ABG results: PT/INR, D-dimer PT 11.2 Seconds (9.4-12.1) 02/19/17 15:08 Consult Discharge Plan - Plan Referrals: NO,PCP [Primary Care Provider] -
[2017-02-21] MEDS: *HR* HYDROmorphone (PF) 1 MG/ML SYRINGE IVP PRN ×8 (02:15→23:15)
[2017-02-21] MEDS: Artificial Tears SOLN 15 ML BOTTLE BOTH EYES PRN (10:47)
--- NOTE | 2017-02-21 11:43 | Palliative Progress Note ---
Date of Encounter: 02/21/17 Time of Encounter: 11:41 - Assessment and plan (1) Abdominal pain Current Visit: Yes Status: Acute Assessment and plan: Hydromorphone as needed for abdominal pain. Monitor for signs of pain as the patient is unable to communicate pain level. Discussed case with RN. Qualifiers: Abdominal location: generalized Qualified Code(s): R10.84 - Generalized abdominal pain (2) Advanced dementia Current Visit: Yes Status: Chronic Assessment and plan: Add lorazepam 0.5mg PO BID, with PRN dosing to continue. Decrease stimulation to prevent agitation. 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 (3) Goals of care, counseling/discussion Current Visit: Yes Status: Chronic Assessment and plan: Plan for discharge back to [place] with hospice services tomorrow if condition is stable for transfer. (4) GI bleed Current Visit: Yes Status: Acute Assessment and plan: Last BM was yesterday. No further blood draws/lab tests, imaging. Qualifiers: GI bleed type/associated pathology: anorectal hemorrhage Qualified Code(s) : K62.5 - Hemorrhage of anus and rectum (5) Agitation Current Visit: Yes Status: Acute Assessment and plan: Schedule lorazepam 0.5mg BID. - Time Spent With Patient Total time spent is greater than 50% in coordination of care (as documented) at patient's floor/unit and/or counseling patient: - Subjective Interval history: Ms. Finney is lying in bed. Moaning. Last BM was yesterday. Family at bedside. - Constitutional Vitals: Abnormal lab results RBC 2.91 M/mcL (3.82-4.97) L 02/20/17 11:35 Hgb 8.6 g/dL (11.5-15.4) L 02/20/17 11:35 Hct 26.1 % (35.3-44.9) L 02/20/17 11:35 APTT 25.2 Seconds (26.0-36.0) L 02/19/17 15:08 Chloride 110 mEq/L (98-109) H 02/20/17 00:48 BUN 27 mg/dL (7-20) H 02/20/17 00:48 BUN/Creatinine Ratio 47 (6-26) H 02/20/17 00:48 POC Glucose 114 (58-89) H 02/20/17 17:26 Calcium 8.2 mg/dL (8.6-10.8) L 02/20/17 00:48 General appearance: Present: no acute distress Exam: 86 year old female, skin pale and diaphoretic, communication by moaning. Does not follow commands at baseline. - Eye Eye exam: Present: EOMI - ENT ENT exam: Present: mucous membranes dry - Respiratory Respiratory exam: Present: decreased breath sounds. Absent: accessory muscle use, respiratory distress - Cardiovascular Cardiovascular exam: Present: RRR - GI/Abdominal GI/Abdominal exam: Present: normal bowel sounds, soft. Absent: tenderness - Extremities Exam Extremities exam: Present: normal inspection - Neurological Exam Neurological exam: Present: alert (opens eyes and moans for communication. Unable to follow commands) - Psychiatric Psychiatric exam: Present: agitated (at times). Absent: anxious - Skin Skin exam: Present: diaphoretic, pallor Palliative Quality Palliative Quality: Screen for Code Status: Yes, Screen for Goals of Care: Yes, Screen for Pain: Yes, If Pain Regimen Started, Initiate Bowel Regimen: NA (GI bleed), Screen for Nausea/Vomitting: Yes Code Status: 02/19/17 17:16 Resuscitation Status: Active [RES] Routine Comment: Per paperwork from [facility] Resuscitation Status: Full Code 02/19/17 18:29 Resuscitation Status: Active [RES] Routine Comment: Discussed with patient's brother Resuscitation Status: DNR-Comfort Care - Labs CBC & Chem 7: 02/20/17 11:35 02/20/17 00:48 Labs: Laboratory Results - last 24 hr 02/20/17 02/20/17 02/20/17 11:35 11:58 17:26 WBC 6.2 RBC 2.91 L Hgb 8.6 L Hct 26.1 L MCV 89.7 MCH 29.6 MCHC 33.0 RDW 14.5 Plt Count 256 MPV 10.1 POC Glucose 129 H 114 H - ABG Interpretation ABG results: PT/INR, D-dimer PT 11.2 Seconds (9.4-12.1) 02/19/17 15:08 Consult Discharge Plan - Plan Referrals: NO,PCP [Primary Care Provider] -
[2017-02-21] MEDS: *HR* LORazepam 0.5 MG TABLET PO SCH ×2 (12:46→23:15)
--- NOTE | 2017-02-21 16:59 | Internal Med Progress Note ---
Date of Encounter: 02/21/17 Time of Encounter: 10:00 - Assessment and plan (1) Advanced dementia Current Visit: Yes Status: Chronic Assessment and plan: We will start Geodon for behavioral features. I will stop Namenda as her dementia is far too advanced for Namenda to provide any type of benefit. (2) DVT prophylaxis Current Visit: No Status: Acute Assessment and plan: Not needed due to comfort care only. (3) Goals of care, counseling/discussion Current Visit: Yes Status: Chronic Assessment and plan: 02/21/2017: Patient remains DNR CC. Improved comfort with IV hydromorphone and Ativan. We will consider discharge back to the custodial what hospice. 02/20/2017: I have discussed the goals of care with the patient's POA. I have explained that the patient will likely not benefit from a colonoscopy or any invasive studies attempting to identify the source of bleeding. The patient has extremely poor quality of life and advanced dementia and they agree that comfort care physical would be preferable at this time. Will treat pain anxiety and nausea. I will discuss discontinue all unnecessary medications, stop all unnecessary needle sticks. (4) GI bleed Current Visit: Yes Status: Acute Assessment and plan: Appears to have stopped. We will treat diarrhea with Imodium. No need to follow-up hemoglobin. No blood transfusions. This was discussed with POA verbalizes agreement with the plan. Qualifiers: GI bleed type/associated pathology: anorectal hemorrhage Qualified Code(s) : K62.5 - Hemorrhage of anus and rectum (5) Abdominal pain Current Visit: Yes Status: Acute Assessment and plan: We will treat her with intravenous hydromorphone. Qualifiers: Abdominal location: generalized Qualified Code(s): R10.84 - Generalized abdominal pain (6) Agitation Current Visit: Yes Status: Acute Assessment and plan: Intramuscular Geodon. The patient is at high risk for morbidity and mortality and complications due to treatment with IV control substances. - Subjective Interval history: 02/21/2017: Patient continues with moaning on occasions, appears more calm, her moaning responds to IV pain medication. She has had no more reported rectal bleeding. 02/20/2017: Patient brought from custodial for evaluation of rectal bleeding. She cannot provide history due to advanced dementia. She tends to yell out almost continuously which her family member says is close to her baseline. She does complain of abdominal pain at this time. - Constitutional Vitals: Temp Pulse Resp BP Pulse Ox 97.4 F L 75 18 105/93 95 02/21/17 15:05 02/21/17 15:05 02/21/17 15:05 02/21/17 15:05 02/21/17 15:05 General appearance: Present: A&O X 0, no acute distress - Respiratory Respiratory exam: Present: CTAB. Absent: accessory muscle use, rales, rhonchi, wheezes - Cardiovascular Cardiovascular exam: Present: RRR, +S1, +S2. Absent: diastolic murmur, gallop, rubs, systolic murmur - GI/Abdominal GI/Abdominal exam: Present: normal bowel sounds, soft, no peritoneal signs. Absent: distended, tenderness Internal Medicine: Result - Labs CBC & Chem 7: 02/20/17 11:35 02/20/17 00:48 - ABG Interpretation ABG results: PT/INR, D-dimer PT 11.2 Seconds (9.4-12.1) 02/19/17 15:08 Consult Discharge Plan - Plan Referrals: NO,PCP [Primary Care Provider] -
[2017-02-21] MEDS: *HR* LORazepam 2 MG/ML VIAL IVP PRN (19:57)
[2017-02-22] MEDS: *HR* HYDROmorphone (PF) 1 MG/ML SYRINGE IVP PRN ×3 (03:04→07:57)
[2017-02-22] MEDS: *HR* LORazepam 2 MG/ML VIAL IVP PRN (05:19)
[2017-02-22] MEDS: *HR* LORazepam 0.5 MG TABLET PO SCH (07:43)
[2017-02-22] MEDS: Artificial Tears SOLN 15 ML BOTTLE BOTH EYES PRN (07:45)
--- NOTE | 2017-02-22 08:49 | Electrocardiograph Report ---
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
--- NOTE | 2017-02-22 10:05 | Palliative Progress Note ---
Date of Encounter: 02/22/17 Time of Encounter: 10:01 - Assessment and plan (1) Abdominal pain Current Visit: Yes Status: Acute Assessment and plan: Hydromorphone as needed for abdominal pain, with a total of 8 doses in the past 24 hours. Monitor for signs of pain as the patient is unable to communicate pain level. Discussed case with RN. Will consider adding a low dose Fentanyl patch. Qualifiers: Abdominal location: generalized Qualified Code(s): R10.84 - Generalized abdominal pain (2) Advanced dementia Current Visit: Yes Status: Chronic Assessment and plan: Add lorazepam 0.5mg PO BID, with PRN dosing to continue. Decrease stimulation to prevent agitation. 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 (3) Goals of care, counseling/discussion Current Visit: Yes Status: Chronic Assessment and plan: Plan for discharge back to [place] with hospice services if condition is stable for transfer. customer services supervisor following for discharge needs. Phone conversation with patient's POA-Jorge Finney. He is aware of the plan to transfer her back to the [facility] and desires to enroll his sister in hospice services. Per family request, [facility] services will be consulted. (4) GI bleed Current Visit: Yes Status: Acute Assessment and plan: Last BM was this morning. No further blood draws/lab tests, or imaging. Qualifiers: GI bleed type/associated pathology: anorectal hemorrhage Qualified Code(s) : K62.5 - Hemorrhage of anus and rectum (5) Agitation Current Visit: Yes Status: Acute Assessment and plan: Schedule lorazepam 0.5mg BID with PRN dosing. - Time Spent With Patient Total time spent is greater than 50% in coordination of care (as documented) at patient's floor/unit and/or counseling patient: - Subjective Interval history: Ms. Finney is lying in bed. IV access was lost. She has required 8 doses of breakthrough medications over the past 24 hours totaling 160 oral morphine equivalents. - Constitutional Vitals: Abnormal lab results RBC 2.91 M/mcL (3.82-4.97) L 02/20/17 11:35 Hgb 8.6 g/dL (11.5-15.4) L 02/20/17 11:35 Hct 26.1 % (35.3-44.9) L 02/20/17 11:35 APTT 25.2 Seconds (26.0-36.0) L 02/19/17 15:08 Chloride 110 mEq/L (98-109) H 02/20/17 00:48 BUN 27 mg/dL (7-20) H 02/20/17 00:48 BUN/Creatinine Ratio 47 (6-26) H 02/20/17 00:48 POC Glucose 92 (58-89) H 02/21/17 05:38 Calcium 8.2 mg/dL (8.6-10.8) L 02/20/17 00:48 General appearance: Absent: cooperative Exam: 86 year old female appearing chronically ill. Verbal communication is limited. - ENT ENT exam: Present: mucous membranes dry - Respiratory Respiratory exam: Absent: accessory muscle use, respiratory distress - Cardiovascular Cardiovascular exam: Present: RRR - GI/Abdominal GI/Abdominal exam: Absent: guarding, tenderness - Extremities Exam Extremities exam: Present: normal inspection - Neurological Exam Neurological exam: Present: altered - Psychiatric Psychiatric exam: Present: agitated (at times) - Skin Skin exam: Present: dry, pallor, warm Palliative Quality Palliative Quality: Screen for Code Status: Yes, Screen for Goals of Care: Yes, Screen for Pain: Yes, If Pain Regimen Started, Initiate Bowel Regimen: NA (GI bleed), Screen for Nausea/Vomitting: Yes Code Status: 02/19/17 17:16 Resuscitation Status: Active [RES] Routine Comment: Per paperwork from [facility] Resuscitation Status: Full Code 02/19/17 18:29 Resuscitation Status: Active [RES] Routine Comment: Discussed with patient's brother Resuscitation Status: DNR-Comfort Care - Labs CBC & Chem 7: 02/20/17 11:35 02/20/17 00:48 Labs: Laboratory Results - last 24 hr 02/21/17 02/21/17 00:38 05:38 POC Glucose 92 H 92 H - ABG Interpretation ABG results: PT/INR, D-dimer PT 11.2 Seconds (9.4-12.1) 02/19/17 15:08 Consult Discharge Plan - Plan Referrals: NO,PCP [Primary Care Provider] - Prescriptions: RX: LORazepam Oral Conc [Ativan Oral Conc] 1 mg PO Q6HR PRN #15 mls PRN Reason: Agitation RX: LORazepam [Ativan] 0.5 mg PO BID #8 tablet RX: OxyCODONE CONC 10 mg PO Q3H PRN #15 mls PRN Reason: moderate to severe pain
[2017-02-22] MEDS ORDERED: *HR* HYDROmorphone 2 MG TABLET PO PRN (11:25)
[2017-02-22] MEDS ORDERED: *HR* LORazepam 0.5 MG TABLET PO PRN (11:25)
[2017-02-22] MEDS ORDERED: Haloperidol Oral Conc 10 MG/5 ML UDC PO SCH (13:00)
[2017-02-22] MEDS ORDERED: OxyCODONE CONC 5 MG/0.25 ML ORAL.SYG PO PRN (14:57)
--- NOTE | 2017-02-22 15:59 | Discharge Summary ---
Date of Encounter: 02/22/17 Time of Encounter: 15:55 - Discharge Diagnosis (1) Advanced dementia Priority: Secondary Status: Chronic (2) DVT prophylaxis Priority: Secondary Status: Acute (3) Goals of care, counseling/discussion Priority: Secondary Status: Chronic (4) GI bleed Priority: Primary Status: Acute Qualifiers: GI bleed type/associated pathology: anorectal hemorrhage Qualified Code(s) : K62.5 - Hemorrhage of anus and rectum (5) Abdominal pain Priority: Secondary Status: Acute Qualifiers: Abdominal location: generalized Qualified Code(s): R10.84 - Generalized abdominal pain (6) Agitation Priority: Secondary Status: Acute - Discharge Medications Prescriptions: LORazepam Oral Conc [Ativan Oral Conc] 1 mg PO Q6HR PRN #15 mls PRN Reason: Agitation LORazepam [Ativan] 0.5 mg PO BID #8 tablet OxyCODONE CONC 10 mg PO Q3H PRN #15 mls PRN Reason: moderate to severe pain Home Medications: Aspirin [Lo-Dose Aspirin EC] 81 mg PO DAILY 12/27/16 [History] Atorvastatin Calcium [Lipitor] 20 mg PO DAILY 12/27/16 [History] Buspirone HCl [Buspar] 10 mg PO BID 12/27/16 [History] Carvedilol [Coreg] 6.25 mg PO BID 12/27/16 [History] Dextromethorphan HBr/Quinidine [Nuedexta 20-10 mg Capsule] 1 cap PO BID [History] Donepezil HCl [Aricept] 10 mg PO DAILY 12/27/16 [History] Ergocalciferol (VITAMIN D2) [Vitamin D] 400 unit PO DAILY 12/27/16 [History] GuaiFENesin/Dextromethorphan [Robitussin Cough-Chest Dm Liq] 5 ml PO Q12H PRN [History] HYDROcodone/Acet 5/325 mg [[employer] 5-325 mg] 1 tab PO Q6H PRN 12/27/16 [History] Haloperidol 2 mg PO AD PRN 12/27/16 [History] Lisinopril [Zestril] 10 mg PO DAILY 12/27/16 [History] Loperamide [Imodium] 2 mg PO Q4HR PRN 12/27/16 [History] Magnesium Hydroxide [Milk of Magnesia] 60 ml PO DAILY PRN 12/27/16 [History] Memantine HCl [Namenda Xr] 28 mg PO DAILY 12/27/16 [History] Nitroglycerin [Nitrostat] 0.4 mg SL Q5M PRN 12/27/16 [History] Polyvinyl Alcohol [Artificial Tears] 1 drop BOTH EYES Q2H PRN 12/27/16 [History] Sertraline [Zoloft] 50 mg PO DAILY 12/27/16 [History] Vitamin E Acid Succinate [Vitamin E] 400 units PO DAILY 12/27/16 [History] LORazepam Oral Conc [Ativan Oral Conc] 1 mg PO Q6HR PRN #15 mls 02/22/17 [Rx] LORazepam [Ativan] 0.5 mg PO BID #8 tablet 02/22/17 [Rx] OxyCODONE CONC 10 mg PO Q3H PRN #15 mls 02/22/17 [Rx] Allergies/Adverse Reactions: Allergies morphine Allergy (Verified 12/27/16 15:40) See Comments UNKNOWN REACTION- LISTED ON ECF MAR SHEET sulfasalazine Allergy (Verified 12/27/16 15:40) See Comments UNKNOWN REACTION- LISTED ON ECF MAR SHEET Date of admission: 02/19/17 16:13 Primary care physician: PCP NO Consults: 02/19/17 20:13 Consult to Cardiovascular Disease Specialist [CONS] Routine Reason for SW Consult: discharge planning with ECF 02/20/17 11:28 Consult to Palliative Care [CONS] Routine Comment: chronic pain, advanced dementia, GI bleed Consulting Provider: Palliative Care Jany - Patient Status Disposition: Transfer Intermediate Care Fac Condition: Fair Functional capacity at discharge: bed bound Overall status at discharge: patient is progressing back to baseline - Discharge Instructions Follow Up With: NO,PCP [Primary Care Provider] - Additional Instructions: to be enrolled in [facility] at snf - Diet and Activity Activity: other Diet: regular diet Hospital course: Ms. Finney is a 86 year old female with hypertension, hyperlipidemia, coronary artery disease, dementia was sent to the ED from [facility] after a sound that she had noted bright red blood and black stool. Patient was nonverbal on presentation. Evaluation in the emergency department showed hemoglobin of 10.3, down from previous value of 14.6 on December 28. The patient was admitted to the medical service. On day 2 of hospitalization shows no evidence of large amount of blood clots per rectum. I had a discussion regarding goals of care with the patient's brother and POA. He opted for comfort care only and no intervention. Due to her poor quality of life and advanced dementia with did not pursue colonoscopy or surgical consult. Palliative care was consulted. They helped care for care towards comfort care only. All unnecessary medication and needle sticks or stopped. She was started on Dilantin for pain and IV Ativan for agitation. She lost IV access and her medications worse switched to oral oxycodone liquid and oral Ativan. By day 3 of hospitalization her rectal bleeding has stopped and she had no further bowel movement or rectal bleeding. She appears to be hemodynamically stable and will be discharged back to the snf with plan for enrollment in [facility]. - Time Spent with Patient Total time spent providing and/or coordinating discharge services: Greater than 30 minutes (I spent 40 minutes coordinating this discharge.) - Constitutional Vitals: Temp Pulse Resp BP Pulse Ox 99 F 115 20 132/76 97 02/22/17 14:46 02/22/17 14:46 02/22/17 14:46 02/22/17 14:46 02/22/17 14:46 General appearance: Present: A&O X 0, no acute distress - Respiratory Respiratory exam: Present: decreased breath sounds, CTAB. Absent: accessory muscle use, rales, rhonchi, wheezes - Cardiovascular Cardiovascular exam: Present: RRR, +S1, +S2. Absent: diastolic murmur, gallop, rubs, systolic murmur - GI/Abdominal GI/Abdominal exam: Present: normal bowel sounds, soft, no peritoneal signs. Absent: distended, tenderness
--- NOTE | 2017-02-22 16:26 | Physician Discharge Referral ---
ExtendedCare Referral Info Provider in Charge after Transfer: Ink Technician Institutional Level of Care: Intermediate - MR - Diagnosis (1) Advanced dementia Status: Chronic (2) DVT prophylaxis Status: Acute (3) Goals of care, counseling/discussion Status: Chronic (4) GI bleed Status: Acute (5) Abdominal pain Status: Acute (6) Agitation Status: Acute - Transfer Medications Prescriptions: LORazepam Oral Conc [Ativan Oral Conc] 1 mg PO Q6HR PRN #15 mls PRN Reason: Agitation LORazepam [Ativan] 0.5 mg PO BID #8 tablet OxyCODONE CONC 10 mg PO Q3H PRN #15 mls PRN Reason: moderate to severe pain Home Medications: Aspirin [Lo-Dose Aspirin EC] 81 mg PO DAILY 12/27/16 [History] Atorvastatin Calcium [Lipitor] 20 mg PO DAILY 12/27/16 [History] Buspirone HCl [Buspar] 10 mg PO BID 12/27/16 [History] Carvedilol [Coreg] 6.25 mg PO BID 12/27/16 [History] Dextromethorphan HBr/Quinidine [Nuedexta 20-10 mg Capsule] 1 cap PO BID [History] Donepezil HCl [Aricept] 10 mg PO DAILY 12/27/16 [History] Ergocalciferol (VITAMIN D2) [Vitamin D] 400 unit PO DAILY 12/27/16 [History] GuaiFENesin/Dextromethorphan [Robitussin Cough-Chest Dm Liq] 5 ml PO Q12H PRN [History] HYDROcodone/Acet 5/325 mg [Elgin 5-325 mg] 1 tab PO Q6H PRN 12/27/16 [History] Haloperidol 2 mg PO AD PRN 12/27/16 [History] Lisinopril [Zestril] 10 mg PO DAILY 12/27/16 [History] Loperamide [Imodium] 2 mg PO Q4HR PRN 12/27/16 [History] Magnesium Hydroxide [Milk of Magnesia] 60 ml PO DAILY PRN 12/27/16 [History] Memantine HCl [Namenda Xr] 28 mg PO DAILY 12/27/16 [History] Nitroglycerin [Nitrostat] 0.4 mg SL Q5M PRN 12/27/16 [History] Polyvinyl Alcohol [Artificial Tears] 1 drop BOTH EYES Q2H PRN 12/27/16 [History] Sertraline [Zoloft] 50 mg PO DAILY 12/27/16 [History] Vitamin E Acid Succinate [Vitamin E] 400 units PO DAILY 12/27/16 [History] LORazepam Oral Conc [Ativan Oral Conc] 1 mg PO Q6HR PRN #15 mls 02/22/17 [Rx] LORazepam [Ativan] 0.5 mg PO BID #8 tablet 02/22/17 [Rx] OxyCODONE CONC 10 mg PO Q3H PRN #15 mls 02/22/17 [Rx] Allergies/Adverse Reactions: Allergies morphine Allergy (Verified 12/27/16 15:40) See Comments UNKNOWN REACTION- LISTED ON ECF MAR SHEET sulfasalazine Allergy (Verified 12/27/16 15:40) See Comments UNKNOWN REACTION- LISTED ON ECF MAR SHEET - Respiratory Orders Oxygen / L per min Smoking Cessation: Smoking cessation has been advised. For more information, call the [employer] Tobacco Quit Line at 3-069-EFJC-NOW. - Advance Directives Living Will: No Power of Space Officer: Yes Code Status: DNR-Comfort Care - Mobility Orders Bedrest - Rehabiliation Orders Rehab Potential: Poor Rehab Orders: Evaluation for Physical Therapy, Evaluation for Occupational Therapy - Diet Orders Mechanical Soft CERTIFICATION: I certify that the transfer of the above named patient to an Extended Care Facility is necessary for the continuing treatment of the diagnosis listed. The above information is true and accurate reflection of patient's current condition. Confidential - Redisclosure prohibited without a patient's written consent.
[2017-02-22] MEDS ORDERED: *HR* LORazepam Oral Conc 2 MG/ML SL SCH (18:00)
[2017-02-23 10:29] VITALS: BP 132/76
== END 2017-02-22 17:35 ==
LOC: 3ANU 14:16 → EMEROO 14:16 → 3ANU 17:35
PROVIDERS: ADMIT Internal Medicine; ATTEND Internal Medicine